=== PATIENT | female | born 1945 | race Caucasian/White ===

== ENCOUNTER 2017-03-04 23:21 | Inpatient (IN) ==
--- NOTE | 2017-03-05 02:01 | Internal Med History&Physical ---
Date of Encounter: 03/05/17 Time of Encounter: 02:01 Assessment and Plan (1) Severe sepsis Current visit: Yes Status: Acute - Fevers at [place] of 100.4, tachyardic 107, tachypnea 24. WBC count 29.9 - Lactic acid 2.8 - Likely secondary to PNA as seen on CXR vs UTI - Clinically dry, will give IVF at 75/hr. - Start Levaquin 750 IV Qday (2) Acute and chronic respiratory failure Current visit: Yes Status: Acute - Pt reportedly wear O2 at night for COPD - Acute respiratory failure secondary to suspected PNA - Tolerating 2L O2 via [place] without complaints. SpO2 mid 90s - Management as above Qualifiers: Respiratory failure complication: unspecified whether with hypoxia or hypercapnia Qualified Code(s): J96.20 - Acute and chronic respiratory failure , unspecified whether with hypoxia or hypercapnia (3) Elevated troponin Current visit: Yes Status: Acute - Likely secondary to demand ischemia from PNA - Will continue to trend. - No complaints of chest pain - Continue home BB, ASA (4) Pneumonia Current visit: Yes Status: Acute - As demonstrated on CXR in [facility]. - Management as above for severe sepsis Qualifiers: Pneumonia type: due to unspecified organism Laterality: right Lung location: lower lobe of lung Qualified Code(s): J18.1 - Lobar pneumonia, unspecified organism (5) UTI (urinary tract infection) Current visit: Yes Status: Acute - Possible UTI from UA done in [facility] ED - Moderate epithelial cells, possible contamination - No complaints of dysuria, frequency - Will await results from culture - Levaquin as above. Qualifiers: Urinary tract infection type: acute cystitis Hematuria presence: without hematuria Qualified Code(s): N30.00 - Acute cystitis without hematuria (6) COPD (chronic obstructive pulmonary disease) Current visit: Yes Status: Chronic - SOB more likely secondary to PNA. - No wheezes on auscultation - Will treat for PNA and monitor. - Supplemental O2 as needed. Qualifiers: COPD type: unspecified COPD Qualified Code(s): J44.9 - Chronic obstructive pulmonary disease, unspecified (7) Altered mental status Current visit: Yes Status: Acute - Likely secondary to severe sepsis secondary to PNA. - Management as above. Qualifiers: Altered mental status type: disorientation Qualified Code(s): R41.0 - Disorientation, unspecified (8) Alzheimer's dementia Current visit: Yes Status: Acute - Reportedly more lethargic than baseline secondary to infection - Pt can reportedly get combative at night per family. - Non aggressive at time of admission. - Will monitor Qualifiers: Alzheimer's disease onset: unspecified onset Dementia behavioral disturbance: without behavioral disturbance Qualified Code(s): G30.9 - Alzheimer's disease, unspecified; F02.80 - Dementia in other diseases classified elsewhere without behavioral disturbance; F02.80 - Dementia in other diseases classified elsewhere without behavioral disturbance; F02.80 - Dementia in other diseases classified elsewhere without behavioral disturbance (9) DVT prophylaxis Current visit: Yes Status: Acute - Heparin 5000 units q12 Internal Medicine - H&P: HPI Chief complaint: lethargy Admitted From: Emergency Dept Plans for Post Hospital Care: Home History of present illness: Ms. Cortes is a 71 year old female who presents to the emergency room by her daughters who noticed that she appeared to be more lethargic than usual. Family states that she normally is alert and talkative throughout the day however she was currently still in bed at noon this afternoon. Patient has a history of Alzheimer's dementia And is not a reliable historian. Family states that she has not been complaining of anything. At time of interview, patient is denying all symptoms including shortness of breath, cough, chest pain, fevers, chills, dysuria abdominal abdominal pain, changes in bowel movements. However, family has noticed that she has been having increased effort of breathing as well as a productive cough. Patient was transferred from [facility] she was noted to have a fever of 100.4 degrees, was tachycardic at 107, and tachypnic 24 respirations per minute. The results that [place] showed a white blood cell count 29.9, BUN of 25, creatinine 1.11, lactic acid of 2.8, troponin 0.12. Urinalysis showing questionable infection with moderate epithelial cells. Chest x-ray performed revealed right lower lobe opacity suggestive of pneumonia. EKG showed sinus rhythm without ST changes. Past Med Surg Social Fam HX - Past Medical History Medical history: arthritis, COPD, dementia, GERD, hyperlipidemia, other Psychiatric history: no psych history - Past Surgical History Surgical History: cholecystectomy - Social History Smoking Status: Former smoker Smokeless Tobacco Status: No Alcohol use: none Drug use: none Internal Medicine - H&P: Meds Albuterol Sulfate [Proair Hfa] 1 puff IH QID 03/04/17 [History] Aspirin [Lo-Dose Aspirin EC] 81 mg PO DAILY 03/04/17 [History] Montelukast [Singulair] 10 mg PO DAILY 03/04/17 [History] Pantoprazole Sodium [Protonix] 40 mg PO DAILY 03/04/17 [History] Potassium Chloride [K-Tab ER] 10 meq PO DAILY 03/04/17 [History] Rivastigmine 1 each TD QDPC 03/04/17 [History] dilTIAZem HCl [Diltiazem 24Hr Cd] 120 mg PO DAILY 03/04/17 [History] 3 Allergy/AdvReac Type Severity Reaction Status Date / Time No Known Allergies Allergy Verified 03/04/17 18:21 All Systems PM: A 10-system review of systems was performed and is negative for pertinent findings except as documented above in the HPI. Review of systems: - Constitutional: Admits to generalized fatigue, Denies fevers, chills, weight loss, - CVS: Denies chest pain, palpitations, FLYNN, orthopnea, edema, PND - Pulm: Denies SOB, cough, sputum, hematemesis, wheezing - GI: Denies abdominal pain, nausea, vomiting, diarrhea, constipation, melena - : Denies dysuria, increased frequency, urgency, hematuria, - Neuro: Denies GONZALEZ, paresthesias, focal deficits, ataxia, numbness, tingling. - Constitutional Vitals: Temp Pulse Resp BP Pulse Ox 98.2 F 90 22 103/64 94 03/05/17 00:43 03/05/17 00:43 03/05/17 00:43 03/05/17 00:43 03/05/17 00:43 Exam: Gen.: Vitals noted. No acute distress. Elderly female in no acute distress, well-nourished HEENT: PERRL, oropharynx clear, Normocephalic, atraumatic. Dry mucous membranes Cardiac: irregularly irregular rhythm, no murmur, +S1/S2 Pulmonary: CTA bilaterally, no wheezes, rales or rhonchi, equal chest expansion Abdomen: soft, tender to palpation in left upper and lower quadrants as well as suprapubic region, bowel sounds noted, no guarding Extremities: no BLE edema, nontender calf, no cyanosis or clubbing Neuro: moves all extremities, no focal deficits Psych: Appropriate mood and behavior
[2017-03-05] MEDS ORDERED: *HR* Morphine 2 MG/ML SYRINGE IVP PRN (02:30)
[2017-03-05] MEDS ORDERED: Naloxone 0.4 MG/ML INJ IVP PRN (02:30)
[2017-03-05] MEDS ORDERED: Ondansetron 4 MG/2 ML VIAL IVP PRN (02:30)
[2017-03-05] MEDS ORDERED: Acetaminophen 325 MG TABLET PO PRN (02:30)
[2017-03-05] MEDS ORDERED: *HR* HYDROcodone/Acet 5/325 mg TABLET PO PRN (02:30)
[2017-03-05 04:22] LABS: Hematocrit 41.7 % (35.3-44.9); Hemoglobin 13.8 g/dL (11.5-15.4); Mean Corpuscular HGB Conc 33.1 g/dL (31.6-35.5); Mean Corpuscular Hemoglobin 31.1 pg (28.0-33.3); Mean Corpuscular Volume 93.9 fL (83.0-100.0); Mean Platelet Volume 13.9 fL (9.4-12.4); Platelet Count 104 K/mcL (140-400); Red Blood Count 4.44 M/mcL (3.82-4.97)
[2017-03-05 04:27] LABS: INR 1.2; Prothrombin Time 13.3 Seconds (9.4-12.1)
[2017-03-05 04:29] LABS: Activated Partial Thrombo Time 26.1 Seconds (26.0-36.0)
[2017-03-05 04:36] LABS: BUN/Creatinine Ratio 25 (6-26); Blood Urea Nitrogen 18 mg/dL (7-20); Calcium 8.4 mg/dL (8.6-10.8); Carbon Dioxide 20 mEq/L (19-29); Chloride 106 mEq/L (98-109); Chol/HDL Ratio 2.4 (0-4.9); Cholesterol 139 mg/dL (< 200); Glucose 108 mg/dL (70-99); HDL Cholesterol 58 mg/dL (40-59); LDL Cholesterol,Calculated 68 mg/dL (0-99); Magnesium 1.7 mg/dL (1.6-2.6); Osmolality,Calculated 284 (280-300); Potassium 3.6 mEq/L (3.5-4.5); Sodium 136 mEq/L (136-145); Triglycerides 67 mg/dL (< 150); eGFR For African Americans > 60 (> 60); eGFR For Non-African Americans > 60 (> 60)
[2017-03-05 04:42] LABS: Lymphocytes # 0.5 K/mcL (0.6-4.6); Monocytes # 0.5 K/mcL (0.0-1.3); Neutrophils # 21.4 K/mcL (1.6-8.9); Platelet Estimate Decreased (Normal); Reactive Lymphocytes Present (Not Present)
[2017-03-05] MEDS ORDERED: Ipratropium/Albuterol Neb 3 ML IH PRN (04:46)
--- NOTE | 2017-03-05 04:48 | Event Note ---
Date of Encounter: 03/05/17 Time of Encounter: 04:47 Patient seen and examined with medical and scientific illustrator. Agree with assessment and plan
[2017-03-05] MEDS: *HR* Heparin 5,000 UNIT/ML VIAL SQ SCH ×2 (06:16→17:02)
[2017-03-05] MEDS: 0.9 % Sodium Chloride 1,000 ML IVC SCH ×2 (07:00→13:46)
--- NOTE | 2017-03-05 08:31 | Internal Med Progress Note ---
<Partha Rutherford - Last Filed: 03/05/17 10:49> Date of Encounter: 03/05/17 Time of Encounter: 08:29 - Assessment and plan (1) Sepsis Current Visit: No Status: Acute Assessment and plan: Secondary to RLL PNA as demonstrated on CXR She did present with WBC of 22 and 18% bands, tachycardia and tachypnea Started on Levaquin in the ED which we will continue Awaiting blood cultures Qualifiers: Qualified Code(s): A41.9 - Sepsis, unspecified organism (2) Community acquired pneumonia Current Visit: Yes Status: Acute Assessment and plan: Management as above with Levaquin Support with breathing treatments and currently on home dose oxygen Qualifiers: Laterality: right Lung location: lower lobe of lung Qualified Code(s): J18.1 - Lobar pneumonia, unspecified organism (3) Elevated troponin Current Visit: Yes Status: Acute Assessment and plan: Adynamic trop of 0.12, .13, and .10 likely due to demand ischemia Cardiology consulted, appreciate recommendations No current chest pain or anginal equivalents (4) COPD (chronic obstructive pulmonary disease) Current Visit: Yes Status: Chronic Assessment and plan: Not currently in exacerbation Will continue home Oxygen, Symbicort and Albuterol No indication for steroids for now Qualifiers: COPD type: unspecified COPD Qualified Code(s): J44.9 - Chronic obstructive pulmonary disease, unspecified (5) Alzheimer's dementia Current Visit: Yes Status: Chronic Assessment and plan: Family at bedside states that her mental status currently is at baseline She does take Rivastigmine patch at home which is on hold for now Qualifiers: Alzheimer's disease onset: unspecified onset Dementia behavioral disturbance: without behavioral disturbance Qualified Code(s): G30.9 - Alzheimer's disease, unspecified; F02.80 - Dementia in other diseases classified elsewhere without behavioral disturbance; F02.80 - Dementia in other diseases classified elsewhere without behavioral disturbance; F02.80 - Dementia in other diseases classified elsewhere without behavioral disturbance (6) DVT prophylaxis Current Visit: Yes Status: Acute Assessment and plan: Heparin 5000 units BID - Subjective Interval history: Pt seen and examined. She does have history of Alzheimer's dementia but her daughters including the one whom she lives with are at bedside and state that her mental status is at baseline. She has no complaints this morning and states her breathing is fine. Patient is on 2 L oxygen as needed at home but is usually non-compliant given her mental status. Family states she does not have recent hospitalizations and never had issues with aspiration, but did have pneumonia roughly 2 years ago. - Constitutional Vitals: Temp Pulse Resp BP Pulse Ox 99.4 F 93 24 105/51 93 03/05/17 04:19 03/05/17 07:54 03/05/17 07:54 03/05/17 07:54 03/05/17 07:54 General appearance: Present: A&O X 1 (only to self), pleasant, no acute distress , answers questions appropriately - Head Head exam: Present: atraumatic, normocephalic - Eye Eye exam: Present: PERRL, conjuntiva pink, sclera anicteric - Neck Neck exam general surgery: Present: supple, trachea midline. Absent: lymphadenopathy - Respiratory Respiratory exam: Present: CTAB. Absent: accessory muscle use, rales, rhonchi, wheezes - Cardiovascular Cardiovascular exam: Present: irregular rhythm (frequent PVCs), RRR, +S1, +S2. Absent: diastolic murmur, gallop, rubs, systolic murmur - GI/Abdominal GI/Abdominal exam: Present: normal bowel sounds, soft, no peritoneal signs. Absent: distended, tenderness - Extremities Exam Extremities exam: Present: warm, radial pulses palpable and symmetrical. Absent : calf tenderness, cyanotic, pedal edema - Neurological Exam Neurological exam: Present: alert, no focal deficits. Absent: oriented X3, pronater drift, facial droop, speech deficit - Skin Skin exam: Present: dry, intact Internal Medicine: Result - Labs CBC & Chem 7: 03/05/17 03:45 03/05/17 03:45 Labs: Short CBC 03/05/17 Range/Units 03:45 WBC 22.8 H (4.3-11.1) K/mcL Hgb 13.8 (11.5-15.4) g/dL Hct 41.7 (35.3-44.9) % Plt Count 104 L (140-400) K/mcL Neutrophils # 21.4 H (1.6-8.9) K/mcL BMP 03/05/17 03:45 Sodium 136 Potassium 3.6 Chloride 106 Carbon Dioxide 20 BUN 18 Creatinine 0.72 Glucose 108 H Calcium 8.4 L Cardiac Enzymes 03/05/17 Range/Units 03:45 Troponin I 0.13 H* (0-0.03) ng/mL - ABG Interpretation ABG results: PT/INR, D-dimer PT 13.3 Seconds (9.4-12.1) H 03/05/17 03:45 Consult Discharge Plan - Plan Referrals: Bonita Nguyen, WASTEWATER TREATMENT OPERATOR [Primary Care Provider] - (office is closed due to ) <Abdulaziz Lee - Last Filed: 03/05/17 18:14> Date of Encounter: 03/05/17 - Constitutional Vitals: Temp Pulse Resp BP Pulse Ox 97.9 F 90 20 89/54 92 03/05/17 15:37 03/05/17 17:06 03/05/17 17:06 03/05/17 17:06 03/05/17 17:06 Internal Medicine: Result - Labs CBC & Chem 7: 03/05/17 03:45 03/05/17 03:45 Labs: Short CBC 03/05/17 Range/Units 03:45 WBC 22.8 H (4.3-11.1) K/mcL Hgb 13.8 (11.5-15.4) g/dL Hct 41.7 (35.3-44.9) % Plt Count 104 L (140-400) K/mcL Neutrophils # 21.4 H (1.6-8.9) K/mcL BMP 03/05/17 03:45 Sodium 136 Potassium 3.6 Chloride 106 Carbon Dioxide 20 BUN 18 Creatinine 0.72 Glucose 108 H Calcium 8.4 L Cardiac Enzymes 03/05/17 03/05/17 03/05/17 Range/Units 03:45 09:36 14:48 Troponin I 0.13 H* 0.10 H* 0.05 H* (0-0.03) ng/mL - ABG Interpretation ABG results: PT/INR, D-dimer PT 13.3 Seconds (9.4-12.1) H 03/05/17 03:45 - Attending Attestation I conducted a face to face diagnostic evaluation of this patient and my medical decision-making was reviewed with the Resident Physician, Dr Partha Rutherford. I agree with the documented findings, disposition and treatment plan as described except to the extent set forth below: Patient with advanced dementia cannot provide history. Here for treatment of sepsis and pneumonia. Blood pressure is low. We will give 1 L bolus and obtain lactic acid level. Zosyn for gram-negative humza coverage. We will monitor closely throughout the night. I discussed CODE STATUS with patient's family. The patient is full code. All medical problems apparently to me today.
[2017-03-05] MEDS: Aspirin 325 MG TABLET PO SCH (09:45)
[2017-03-05] MEDS: Levofloxacin 750 MG/150 ML 750 MG/150 ML BAG IVPB SCH (09:46)
--- NOTE | 2017-03-05 10:08 | Cardiology Consult Note ---
Date of Encounter: 03/05/17 Time of Encounter: 10:01 Assessment and Plan (1) Elevated troponin Current Visit: Yes Status: Acute Most likely due to demand ischemia from acute respiratory failure. trop 0.12, 0.13, 0.10. WBC 22.8, CXR form [place] reported Focal airspace opacity in the right lung base suspicious for pneumonia. EKG does not show ischemic change. - Continue telemetry (2) Abdominal aortic aneurysm Current Visit: Yes Status: Acute Self reported high risk abdominal aortic aneurysm, was recommended to have repaired but poor candidate due to patient health. - continue ASA - atorvastatin statin 40 mg started Qualifiers: Qualified Code(s): I71.4 - Abdominal aortic aneurysm, without rupture (3) Severe sepsis Current Visit: Yes Status: Acute per management of medicine team Discussion w patient/family: The assessment and plan as outlined above was discussed with the patient and/or family members who expressed understanding and agreement. All questions were answered. Thank you for involving us in the care of your patient. Please call with any questions. History of Present Illness Consult date: 03/05/17 Requesting physician: Moiz Downs Consult reason: elevated trops Chief complaint: breathing problems and urinary problem History of present illness: Ms. Cortes is a 71 year old female with a history of dementia, COPD and HLD she currently is hospitalized for severe sepsis source PNA/UTI. Cardio is consulted for elevated trops 0.12, 0.13. Patient was seen with her two daughters who provided history. Patient had shortness of breath that started yesterday. She currently is not having symptoms, and states that she's doing well. Patient denies chest pain, diaphoresis, Orthopnea, and PND. Patient and daughters were unsure of why patient is currently on Diltiazem 120, but that she 's been on it for at least since 2008. 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 She was suppose to have a surgical repair at some point this year, but due to her health status she determined to be a poor candidate. Patient and family denies any previous cardiac history. Past Med Surg Social Fam HX - Past Medical History Medical history: arthritis, COPD, dementia, GERD, hyperlipidemia, other Psychiatric history: no psych history - Past Surgical History Surgical History: cholecystectomy - Social History Smoking Status: Former smoker Smokeless Tobacco Status: No Alcohol use: none Drug use: none Medications and Allergies Albuterol Sulfate [Proair Hfa] 1 puff IH QID 03/04/17 [History] Aspirin [Lo-Dose Aspirin EC] 81 mg PO DAILY 03/04/17 [History] Montelukast [Singulair] 10 mg PO DAILY 03/04/17 [History] Pantoprazole Sodium [Protonix] 40 mg PO DAILY 03/04/17 [History] Potassium Chloride [K-Tab ER] 10 meq PO DAILY 03/04/17 [History] Rivastigmine 1 each TD QDPC 03/04/17 [History] dilTIAZem HCl [Diltiazem 24Hr Cd] 120 mg PO DAILY 03/04/17 [History] Budesonide/Formoterol 160/4.5 [Symbicort 160/4.5] 2 puff IH BID 03/05/17 [ History] Tiotropium [Spiriva] 1 puff IH DAILY 03/05/17 [History] 3 Allergy/AdvReac Type Severity Reaction Status Date / Time No Known Allergies Allergy Verified 03/04/17 18:21 All Systems Review: A 10-system review of systems was performed and is negative for pertinent findings except as documented above in the HPI. - Constitutional Constitutional: anorexia (patient has been losing weight over the last couple of months), fatigue, weakness, weight loss, no chills, no fever(s), no weight gain - EENT Eyes: no blurred vision, no loss of vision - Cardiovascular Cardiovascular: as per HPI - Respiratory Respiratory: no cough, no dyspnea, no hemoptysis, no wheezing - Gastrointestinal Gastrointestinal: no abdominal pain - Integumentary Integumentary: no erythema, no rash, no unusual bruising - Neurological Neurological: memory loss, no abnormal speech, no dizziness, no focal weakness, no loss of vision, no numbness, no syncope, no tingling - Psychiatric Psychiatric: no anxiety, no depression, no hallucinations, no panic attacks Physical Examination Vital Signs, Last 4 Hours Pulse Resp BP Pulse Ox 03/05/17 07:54 93 24 105/51 93 General: Conversant, No Apparent Distress HEENT: Atraumatic, Normocephaly, Mucus Membranes Moist Neck: No JVD, Normal carotid pulses Cardiac: Normal S1 and S2, No Murmur, Other (irregular rate) Lungs: Normal Breath Sounds, No Wheeze, Rales, Rhonchi Neuro: Alert and responsive, No focal deficits noted Abdomen: Soft, Non-Tender Skin: No rashes noted on visualized skin Musculoskeletal: No Chest Wall Tenderness Extremities: No Clubbing, No Cyanosis, No Edema, Normal Pulses Results 03/05/17 03:45 03/05/17 03:45 Lab Results 03/05/17 03/05/17 03/05/17 03:45 03:45 03:45 WBC 22.8 H Hgb 13.8 Hct 41.7 Plt Count 104 L INR 1.2 APTT 26.1 Sodium Potassium Chloride Carbon Dioxide BUN Creatinine Glucose Calcium Magnesium Troponin I 0.13 H* 03/05/17 03:45 WBC Hgb Hct Plt Count INR APTT Sodium 136 Potassium 3.6 Chloride 106 Carbon Dioxide 20 BUN 18 Creatinine 0.72 Glucose 108 H Calcium 8.4 L Magnesium 1.7 Troponin I Consult Discharge Plan - Plan Referrals: Bonita Nguyen SKIVER MACHINE OPERATOR [Primary Care Provider] - (office is closed due to )
[2017-03-05] MEDS: Budesonide/Formoterol 160/4.5 MDI IH SCH ×2 (10:33→21:29)
[2017-03-05] MEDS ORDERED: 0.9 % Sodium Chloride 500 ML IVC ONE ×2 (14:48→19:26)
[2017-03-05] MEDS ORDERED: 0.9 % Sodium Chloride 1,000 ML IVC ONE (18:04)
[2017-03-05] MEDS: Piperacillin/Tazobactam 3.375 GM in D5% in Water 50 ML IVPB SCH (19:18)
[2017-03-05] MEDS ORDERED: Vancomycin 750 MG in D5% in Water 250 ML IVPB SCH (20:00)
[2017-03-05] MEDS ORDERED: Vancomycin 1,000 MG in D5% in Water 250 ML IVPB ONE (20:18)
[2017-03-05] MEDS ORDERED: *HR* LORazepam 0.5 MG TABLET PO ONE (22:15)
[2017-03-05] MEDS ORDERED: *HR* Digoxin 0.5 MG/2 ML AMPUL IVP ONE ×2 (22:18→23:39)
[2017-03-05] MEDS ORDERED: *HR* Digoxin 0.5 MG/2 ML AMPUL ONE (22:52)
[2017-03-06] MEDS: Piperacillin/Tazobactam 3.375 GM in D5% in Water 50 ML IVPB SCH ×3 (03:12→17:23)
[2017-03-06 04:04] LABS: Basophils % 0.2 %; Eosinophils % 0.1 %
[2017-03-06 04:06] LABS: Hematocrit 39.3 % (35.3-44.9); Hemoglobin 12.6 g/dL (11.5-15.4); Immature Granulocytes % 1.9 % (0-4); Immature Platelets 15.9 % (1.1-6.1); Lymphocytes # 0.8 K/mcL (0.6-4.6); Lymphocytes % 4.8 %; Mean Corpuscular HGB Conc 32.1 g/dL (31.6-35.5); Mean Corpuscular Hemoglobin 30.8 pg (28.0-33.3); Mean Corpuscular Volume 96.1 fL (83.0-100.0); Mean Platelet Volume 12.8 fL (9.4-12.4); Monocytes # 0.8 K/mcL (0.0-1.3); Monocytes % 4.7 %; Platelet Count 106 K/mcL (140-400); Red Blood Count 4.09 M/mcL (3.82-4.97); Red Cell Distribution Width 13.8 % (11.5-14.5); Segmented Neutrophils % 88.3 %
[2017-03-06 04:20] LABS: BUN/Creatinine Ratio 16 (6-26); Blood Urea Nitrogen 10 mg/dL (7-20); Calcium 8.3 mg/dL (8.6-10.8); Carbon Dioxide 19 mEq/L (19-29); Chloride 111 mEq/L (98-109); Glucose 102 mg/dL (70-99); Osmolality,Calculated 285 (280-300); Potassium 3.3 mEq/L (3.5-4.5); Sodium 138 mEq/L (136-145); eGFR For African Americans > 60 (> 60); eGFR For Non-African Americans > 60 (> 60)
[2017-03-06] MEDS: *HR* Heparin 5,000 UNIT/ML VIAL SQ SCH ×2 (05:57→17:24)
[2017-03-06] MEDS: Aspirin 325 MG TABLET PO SCH (08:41)
--- NOTE | 2017-03-06 09:47 | Internal Med Progress Note ---
<Partha Rutherford - Last Filed: 03/06/17 11:36> Date of Encounter: 03/06/17 Time of Encounter: 09:45 - Assessment and plan (1) Severe sepsis Current Visit: Yes Status: Acute Assessment and plan: Secondary to RLL PNA as demonstrated on CXR Her white count has decreased to 15.9 from 22.8 and she has remained afebrile Coverage was broadened yesterday due to hypotension; Zosyn and Vanc were added to Levaquin Blood cultures collected yesterday remain negative Continue with gentle fluid hydration with NS @ 75 ml/hr (2) Atrial fibrillation with RVR Current Visit: Yes Status: Acute Assessment and plan: Patient did go into AFib RVR last night with rates in the 160s on EKG Due to borderline hypotension, she was given IV Digoxin Cardiology has been re-consulted, appreciate recommendations CHADSVASC = 2 (age, female) but she is not ideal candidate for correction anticoagulation given her dementia and fall risk Echo pending (3) Community acquired pneumonia Current Visit: Yes Status: Acute Assessment and plan: Management as above with broad spectrum antibiotics Support with breathing treatments and currently on home dose oxygen Qualifiers: Laterality: right Lung location: lower lobe of lung Qualified Code(s): J18.1 - Lobar pneumonia, unspecified organism (4) Elevated troponin Current Visit: Yes Status: Acute Assessment and plan: Adynamic trop of .13, .10, .05 likely due to demand ischemia in setting of sepsis Cardiology consulted, appreciate recommendations No current chest pain or anginal equivalents (5) COPD (chronic obstructive pulmonary disease) Current Visit: Yes Status: Chronic Assessment and plan: Not currently in exacerbation Will continue home Oxygen, Symbicort and Albuterol No indication for steroids for now Qualifiers: COPD type: unspecified COPD Qualified Code(s): J44.9 - Chronic obstructive pulmonary disease, unspecified (6) Alzheimer's dementia Current Visit: Yes Status: Chronic Assessment and plan: Family at bedside states that her mental status currently is at baseline She does take Rivastigmine patch at home which is on hold for now Qualifiers: Alzheimer's disease onset: unspecified onset Dementia behavioral disturbance: without behavioral disturbance Qualified Code(s): G30.9 - Alzheimer's disease, unspecified; F02.80 - Dementia in other diseases classified elsewhere without behavioral disturbance; F02.80 - Dementia in other diseases classified elsewhere without behavioral disturbance; F02.80 - Dementia in other diseases classified elsewhere without behavioral disturbance (7) DVT prophylaxis Current Visit: Yes Status: Acute Assessment and plan: Heparin 5000 units BID - Subjective Interval history: Pt seen and examined. She does have history of Alzheimer's dementia but she has many family members at bedside. They report that she did have rapid heart rate overnight but patient otherwise has no symptoms or complaints this morning. She denies any pain, shortness of breath, nausea, vomiting and is anxious to go home. - Constitutional Vitals: Temp Pulse Resp BP Pulse Ox 98.8 F 101 24 94/48 97 03/06/17 07:18 03/06/17 07:18 03/06/17 07:18 03/06/17 07:18 03/06/17 07:18 General appearance: Present: A&O X 1 (only to self), pleasant, no acute distress , answers questions appropriately - Head Head exam: Present: atraumatic, normocephalic - Eye Eye exam: Present: PERRL, conjuntiva pink, sclera anicteric - Neck Neck exam general surgery: Present: supple, trachea midline. Absent: lymphadenopathy - Respiratory Respiratory exam: Present: CTAB. Absent: accessory muscle use, rales, rhonchi, wheezes - Cardiovascular Cardiovascular exam: Present: irregular rhythm, +S1, +S2, tachycardia. Absent: diastolic murmur, gallop, rubs, systolic murmur - GI/Abdominal GI/Abdominal exam: Present: normal bowel sounds, soft, no peritoneal signs. Absent: distended, tenderness - Extremities Exam Extremities exam: Present: warm, radial pulses palpable and symmetrical. Absent : calf tenderness, cyanotic, pedal edema - Neurological Exam Neurological exam: Present: alert, oriented X3, no focal deficits. Absent: pronater drift, facial droop, speech deficit - Skin Skin exam: Present: dry, intact Internal Medicine: Result - Labs CBC & Chem 7: 03/06/17 03:36 03/06/17 03:36 Labs: Short CBC 03/06/17 Range/Units 03:36 WBC 15.9 H (4.3-11.1) K/mcL Hgb 12.6 (11.5-15.4) g/dL Hct 39.3 (35.3-44.9) % Plt Count 106 L (140-400) K/mcL Neutrophils # 14.0 H (1.6-8.9) K/mcL [facility] 03/06/17 03:36 Sodium 138 Potassium 3.3 L Chloride 111 H Carbon Dioxide 19 BUN 10 Creatinine 0.61 Glucose 102 H Calcium 8.3 L Cardiac Enzymes 03/05/17 03/05/17 Range/Units 09:36 14:48 Troponin I 0.10 H* 0.05 H* (0-0.03) ng/mL - ABG Interpretation ABG results: PT/INR, D-dimer PT 13.3 Seconds (9.4-12.1) H 03/05/17 03:45 Consult Discharge Plan - Plan Referrals: Bonita Nguyen, GASOLINE ATTENDANT [Primary Care Provider] - (office is closed due to ) <Abdulaziz Lee - Last Filed: 03/06/17 17:01> Date of Encounter: 03/06/17 - Constitutional Vitals: Temp Pulse Resp BP Pulse Ox 98.0 F 85 20 94/57 96 03/06/17 16:00 03/06/17 16:00 03/06/17 16:00 03/06/17 16:00 03/06/17 16:00 Internal Medicine: Result - Labs CBC & Chem 7: 03/06/17 03:36 03/06/17 03:36 Labs: Short CBC 03/06/17 Range/Units 03:36 WBC 15.9 H (4.3-11.1) K/mcL Hgb 12.6 (11.5-15.4) g/dL Hct 39.3 (35.3-44.9) % Plt Count 106 L (140-400) K/mcL Neutrophils # 14.0 H (1.6-8.9) K/mcL [facility] 03/06/17 03:36 Sodium 138 Potassium 3.3 L Chloride 111 H Carbon Dioxide 19 BUN 10 Creatinine 0.61 Glucose 102 H Calcium 8.3 L - ABG Interpretation ABG results: PT/INR, D-dimer PT 13.3 Seconds (9.4-12.1) H 03/05/17 03:45 - Impressions Impressions Echocardiogram 03/05/17 13:57 Impressions: LVEF 55%. Normal LV chamber size, wall thickness and function. Trace mitral regurgitation. Normal mitral valve structure and function, mild annular calcification, trace MR Mild-moderate tricuspid regurgitation. Left Ventricular Wall Motion: Rest Echo Findings All wall segments showed normal motion. Findings: Study Quality * Technically adequate exam. ECG Findings * Normal sinus rhythm. Left Ventricle * LVEF 55%. * Normal LV chamber size, wall thickness and function. Right Ventricle * Normal right ventricular structure and function. Left Atrium * Normal left atrial size. Right Atrium * Normal right atrial size. Aortic Valve * trileaflet, opens well, mild annular calcification Mitral Valve * Normal mitral valve structure and function, mild annular calcification, trace MR mild annular calcificatoin * Trace mitral regurgitation. Tricuspid Valve * Mild-moderate tricuspid regurgitation. * No tricuspid stenosi. * No pulmonary hypertension. Pulmonic Valve * Normal pulmonic valve structure and function. Aorta * Normally sized aortic root. - Attending Attestation I conducted a face to face diagnostic evaluation of this patient and my medical decision-making was reviewed with the Resident Physician, Dr Partha Rutherford. I agree with the documented findings, disposition and treatment plan as described except to the extent set forth below: I discussed the case with cardiology recommends holding off any antiarrhythmic while the patient is in sinus and considering restarting digoxin only. The patient goes into A. fib with rapid ventricular response. She is at high risk for morbidity mortality and complications due to severe sepsis requiring treatment with IV vancomycin which needs blood level monitoring for toxicity.
[2017-03-06] MEDS: Budesonide/Formoterol 160/4.5 MDI IH SCH ×2 (10:14→20:53)
--- NOTE | 2017-03-06 11:55 | Event Note ---
Date of Encounter: 03/06/17 Time of Encounter: 12:00 - Cardiology Event Note ECHO: Impressions: LVEF 55%. Normal LV chamber size, wall thickness and function. Trace mitral regurgitation. Normal mitral valve structure and function, mild annular calcification, trace MR Mild-moderate tricuspid regurgitation. Left Ventricular Wall Motion: Rest Echo Findings All wall segments showed normal motion. Patient already signed off by Cardiology. No further recs. Re-consult PRN.
[2017-03-06] MEDS ORDERED: 0.9 % Sodium Chloride 500 ML IVC ONE (13:40)
--- NOTE | 2017-03-06 14:14 | Cardiology Progress Note ---
Date of Encounter: 03/06/17 Time of Encounter: 14:15 Assessment and Plan (1) Atrial fibrillation with RVR Current Visit: Yes Status: Acute Per Cardiology: ECG showed afib RVR 150's -160's. Suspect sepsis driving factor. Unknown if past history of atrial fibrillation-- apparently had been on Cardizem the past. Patient status post IV digoxin 3 doses with almost full load (Low SBP). Kidney function stable. Currently sinus rhythm in the 80s with PACs. Discussed with Dr. Lugo, since almost received full digoxin load (0.5mg, 0.25, and 0.125mg), will go ahead and start Digoxin 0.125mg PO daily. SBP in the 100's. Monitor tele. Will s/o, re-consult PRN. F/u scheduled. Echo showed EF 55%, NSWMA. Not deemed a good candidate for ferry terminal agent AC d/t comorbids and dementia. (2) Elevated troponin Current Visit: Yes Status: Acute Per Cardiology: Most likely due to demand ischemia from acute respiratory failure-- trop 0.12, 0.13, 0.10. WBC 22.8, CXR form [facility] reported Focal airspace opacity in the right lung base suspicious for pneumonia. EKG does not show ischemic change. Echo ok. CP free. Family agreeable to medical management. On asa, statin. No BB d/t hypotension. Discussion w patient/family: The assessment and plan as outlined above was discussed with the patient and/or family members who expressed understanding and agreement. All questions were answered. Thank you for involving us in the care of your patient. Please call with any questions. Subjective Principal diagnosis: Afib RVR Interval history: Patient seen today with multiple family members at bedside. Patient alert to person. When asked location she said "here". Patient thought she was at home. Unaware of year. Daughter reports history of dementia. She appears to deny any chest pain, shortness of breath, any palpitations. Objective Vital Signs, Last 4 Hours Temp Pulse Resp BP Pulse Ox 03/06/17 12:03 98.2 F 123 22 100/52 92 03/06/17 10:15 18 97 General: Conversant Cardiac: Reg Rate and Rhythm, Normal S1 and S2, No Murmur Lungs: Other (diminished throughout) Neuro: Alert and responsive Skin: No rashes noted on visualized skin Extremities: No Edema Results 03/06/17 03:36 03/06/17 03:36 Lab Results Laboratory Tests 03/05/17 03/05/17 03/05/17 03:45 03:45 03:45 WBC 22.8 H Plt Count INR 1.2 Potassium Magnesium Troponin I 0.13 H* 03/05/17 03/05/17 03/05/17 03:45 09:36 14:48 WBC Plt Count INR Potassium Magnesium 1.7 Troponin I 0.10 H* 0.05 H* 03/06/17 03/06/17 03:36 03:36 WBC 15.9 H Plt Count 106 L INR Potassium 3.3 L Magnesium Troponin I ITS Impressions Echocardiogram 03/05/17 13:57 Impressions: LVEF 55%. Normal LV chamber size, wall thickness and function. Trace mitral regurgitation. Normal mitral valve structure and function, mild annular calcification, trace MR Mild-moderate tricuspid regurgitation. Left Ventricular Wall Motion: Rest Echo Findings All wall segments showed normal motion. Findings: Study Quality * Technically adequate exam. ECG Findings * Normal sinus rhythm. Left Ventricle * LVEF 55%. * Normal LV chamber size, wall thickness and function. Right Ventricle * Normal right ventricular structure and function. Left Atrium * Normal left atrial size. Right Atrium * Normal right atrial size. Aortic Valve * trileaflet, opens well, mild annular calcification Mitral Valve * Normal mitral valve structure and function, mild annular calcification, trace MR mild annular calcificatoin * Trace mitral regurgitation. Tricuspid Valve * Mild-moderate tricuspid regurgitation. * No tricuspid stenosi. * No pulmonary hypertension. Pulmonic Valve * Normal pulmonic valve structure and function. Aorta * Normally sized aortic root. Active Medications Acetaminophen (Tylenol) 650 mg PO Q6HR PRN PRN Reason: pain/fever Stop: 09/04/17 02:31 Hydrocodone Bitart/Acetaminophen ([place]ard 5-325 Mg) 1 tab PO Q4HR PRN PRN Reason: Moderate Pain (4-6) Stop: 09/04/17 02:31 Albuterol/Ipratropium (Duoneb) 3 ml IH [id number] PRN PRN Reason: Shortness Of Breath/Wheezing Stop: 09/04/17 04:47 Aspirin (Aspirin) 325 mg PO DAILY [facility] Stop: 09/04/17 09:01 Last Admin: 03/06/17 08:41 Dose: 325 mg Atorvastatin Calcium (Lipitor) 40 mg PO HS [facility] Stop: 09/04/17 21:01 Last Admin: 03/05/17 21:08 Dose: 40 mg Budesonide/Formoterol Fumarate (Symbicort) 2 puff IH BIDR KIMBER PRN Reason: Protocol Stop: 09/04/17 10:01 Last Admin: 03/06/17 10:14 Dose: 2 puff Docusate Sodium (Colace) 100 mg PO BID PRN PRN Reason: Constipation Stop: 09/04/17 02:31 Heparin Sodium (Porcine) (Heparin) 5,000 unit SQ Q12HCO [facility] Stop: 09/04/17 06:01 Last Admin: 03/06/17 05:57 Dose: 5,000 unit Levofloxacin/Dextrose (Levaquin Premix 750mg/150 Ml) 750 mg in 150 mls @ 100 mls/hr IVPB Q48H [facility] PRN Reason: Protocol Stop: 09/04/17 09:01 Last Infusion: 03/05/17 11:18 Dose: Infused Sodium Chloride (0.9 % Sodium Chloride) 1,000 mls @ 75 mls/hr IVC .[id number] [facility] Stop: 09/04/17 02:46 Last Admin: 03/05/17 13:46 Dose: 75 mls/hr Piperacillin Sod/Tazobactam (Sod 3.375 gm/ Dextrose) 50 mls @ 12.5 mls/hr IVPB Q8H [facility] Stop: 09/04/17 18:31 Last Admin: 03/06/17 09:15 Dose: 12.5 mls/hr Vancomycin HCl 750 mg/ (Dextrose) 250 mls @ 250 mls/hr IVPB Q24H [facility] Stop: 09/05/17 20:01 Naloxone HCl (Narcan) 0.4 mg IVP Q2MIN PRN PRN Reason: Opioid Reversal Stop: 09/04/17 02:31 Ondansetron HCl (Zofran) 4 mg IVP Q8HR PRN PRN Reason: Nausea And Vomiting Stop: 09/04/17 02:31 Last Admin: 03/06/17 13:10 Dose: 4 mg - Imaging and Cardiology Echo: report reviewed - EKG Interpretation EKG results cardiology: personally reviewed (ECG showed A. fib in the 150s), other (Telemetry reviewed and current sinus rhythm in the 80s with PACs, average heart rate the past 12 hours 108) Consult Discharge Plan - Plan Referrals: Bonita Nguyen, EMMANUEL [Primary Care Provider] - (office is closed due to )
[2017-03-06] MEDS: 0.9 % Sodium Chloride 1,000 ML IVC SCH (14:41)
[2017-03-06] MEDS: *HR* Digoxin 0.125 MG TABLET PO SCH (15:09)
[2017-03-06] MEDS ORDERED: Vancomycin 750 MG in D5% in Water 250 ML IVPB SCH (20:00)
[2017-03-07] MEDS: Piperacillin/Tazobactam 3.375 GM in D5% in Water 50 ML IVPB SCH ×3 (02:39→18:17)
[2017-03-07] MEDS: *HR* Heparin 5,000 UNIT/ML VIAL SQ SCH ×2 (04:57→18:18)
[2017-03-07 05:16] LABS: Basophils % 0.4 %; Eosinophils # 0.1 K/mcL (0.0-0.6); Eosinophils % 1.4 %; Hematocrit 36.3 % (35.3-44.9); Hemoglobin 11.7 g/dL (11.5-15.4); Immature Granulocytes % 0.6 % (0-4); Lymphocytes # 0.7 K/mcL (0.6-4.6); Mean Corpuscular HGB Conc 32.2 g/dL (31.6-35.5); Mean Corpuscular Hemoglobin 30.2 pg (28.0-33.3); Mean Corpuscular Volume 93.8 fL (83.0-100.0); Mean Platelet Volume 12.3 fL (9.4-12.4); Monocytes # 0.6 K/mcL (0.0-1.3); Monocytes % 6.8 %; Neutrophils # 6.7 K/mcL (1.6-8.9); Platelet Count 132 K/mcL (140-400); Red Blood Count 3.87 M/mcL (3.82-4.97); Red Cell Distribution Width 13.8 % (11.5-14.5); Segmented Neutrophils % 81.8 %
[2017-03-07 05:29] LABS: BUN/Creatinine Ratio 14 (6-26); Blood Urea Nitrogen 8 mg/dL (7-20); Calcium 8.3 mg/dL (8.6-10.8); Carbon Dioxide 25 mEq/L (19-29); Chloride 109 mEq/L (98-109); Glucose 90 mg/dL (70-99); Osmolality,Calculated 284 (280-300); Potassium 3.5 mEq/L (3.5-4.5); Sodium 138 mEq/L (136-145); eGFR For African Americans > 60 (> 60); eGFR For Non-African Americans > 60 (> 60)
[2017-03-07] MEDS ORDERED: Aminoglycoside Consult 1 EACH MC ONE (07:33)
--- NOTE | 2017-03-07 07:50 | Event Note ---
Date of Encounter: 03/07/17 Time of Encounter: 06:30 - Cardiology Event Note Currently sinus rhythm in the 90s with PACs. Average heart rate past 12 hours 103, brief episodes of A. fib with RVR yesterday evening, no further recurrence this morning. Continue with digoxin. No further recommendations. Reconsult if needed.
[2017-03-07] MEDS: 0.9 % Sodium Chloride 1,000 ML IVC SCH ×2 (08:11→20:14)
[2017-03-07] MEDS: Levofloxacin 750 MG/150 ML 750 MG/150 ML BAG IVPB SCH (08:12)
[2017-03-07] MEDS: Aspirin 325 MG TABLET PO SCH (08:13)
[2017-03-07] MEDS: *HR* Digoxin 0.125 MG TABLET PO SCH (08:13)
--- NOTE | 2017-03-07 10:25 | Internal Med Progress Note ---
<KrishPartha - Last Filed: 03/07/17 11:17> Date of Encounter: 03/07/17 Time of Encounter: 10:23 - Assessment and plan (1) Severe sepsis Current Visit: Yes Status: Acute Assessment and plan: Secondary to RLL PNA as demonstrated on CXR Her white count has decreased to 8.1 from 15.9 and she has remained afebrile Blood cultures remain negative > 48 hrs and Vanc has been stopped; continue Levaquin and Zosyn Continue with gentle fluid hydration with NS @ 75 ml/hr due to her poor intake and has borderline hypotension (2) Atrial fibrillation with RVR Current Visit: Yes Status: Acute Assessment and plan: Patient did go into AFib RVR on 03/05 with rates in the 160s on EKG Due to borderline hypotension, she was given IV Digoxin Cardiology recommended starting her on PO Digoxin CHADSVASC = 2 (age, female) but she is not ideal candidate for [facility]cf anticoagulation given her dementia and fall risk Echo was unremarkable (3) Community acquired pneumonia Current Visit: Yes Status: Acute Assessment and plan: Management as above with broad spectrum antibiotics Support with breathing treatments and currently on home dose oxygen Qualifiers: Laterality: right Lung location: lower lobe of lung Qualified Code(s): J18.1 - Lobar pneumonia, unspecified organism (4) Elevated troponin Current Visit: Yes Status: Acute Assessment and plan: Adynamic trop of .13, .10, .05 likely due to demand ischemia in setting of sepsis Cardiology consulted and did not believe she needed any intervention No current chest pain or anginal equivalents (5) COPD (chronic obstructive pulmonary disease) Current Visit: Yes Status: Chronic Assessment and plan: Not currently in exacerbation Will continue home Oxygen, Symbicort and Albuterol No indication for steroids for now Qualifiers: COPD type: unspecified COPD Qualified Code(s): J44.9 - Chronic obstructive pulmonary disease, unspecified (6) Alzheimer's dementia Current Visit: Yes Status: Chronic Assessment and plan: Family at bedside states that her mental status currently is at baseline She does take Rivastigmine patch at home which is on hold for now Qualifiers: Alzheimer's disease onset: unspecified onset Dementia behavioral disturbance: without behavioral disturbance Qualified Code(s): G30.9 - Alzheimer's disease, unspecified; F02.80 - Dementia in other diseases classified elsewhere without behavioral disturbance; F02.80 - Dementia in other diseases classified elsewhere without behavioral disturbance; F02.80 - Dementia in other diseases classified elsewhere without behavioral disturbance (7) DVT prophylaxis Current Visit: Yes Status: Acute Assessment and plan: Heparin 5000 units BID - Subjective Interval history: Pt seen and examined. Daughter is at bedside and stayed overnight with the patient states there were no overnight events. Patient is comfortable laying in bed this morning and has no complaints of SOB, chest pain, nausea, vomiting, diarrhea. Daughter states pt has not much of an appetite this morning. - Constitutional Vitals: Temp Pulse Resp BP Pulse Ox 99.0 F 100 20 95/49 94 03/07/17 07:20 03/07/17 08:21 03/07/17 07:20 03/07/17 07:20 03/07/17 07:20 General appearance: Present: A&O X 1 (only to self), pleasant, no acute distress , answers questions appropriately - Head Head exam: Present: atraumatic, normocephalic - Eye Eye exam: Present: PERRL, conjuntiva pink, sclera anicteric - Neck Neck exam general surgery: Present: supple, trachea midline. Absent: lymphadenopathy - Respiratory Respiratory exam: Present: CTAB. Absent: accessory muscle use, rales, rhonchi, wheezes - Cardiovascular Cardiovascular exam: Present: irregular rhythm, +S1, +S2. Absent: diastolic murmur, gallop, rubs, systolic murmur - GI/Abdominal GI/Abdominal exam: Present: normal bowel sounds, soft, no peritoneal signs. Absent: distended, tenderness - Extremities Exam Extremities exam: Present: warm, radial pulses palpable and symmetrical. Absent : calf tenderness, cyanotic, pedal edema - Neurological Exam Neurological exam: Present: alert, no focal deficits. Absent: oriented X3, pronater drift, facial droop, speech deficit - Skin Skin exam: Present: dry, intact Internal Medicine: Result - Labs CBC & Chem 7: 03/07/17 05:09 03/07/17 05:09 Labs: Short CBC 03/07/17 Range/Units 05:09 WBC 8.1 (4.3-11.1) K/mcL Hgb 11.7 (11.5-15.4) g/dL Hct 36.3 (35.3-44.9) % Plt Count 132 L (140-400) K/mcL Neutrophils # 6.7 (1.6-8.9) K/mcL BMP 03/07/17 05:09 Sodium 138 Potassium 3.5 Chloride 109 Carbon Dioxide 25 BUN 8 Creatinine 0.59 Glucose 90 Calcium 8.3 L - ABG Interpretation ABG results: PT/INR, D-dimer PT 13.3 Seconds (9.4-12.1) H 03/05/17 03:45 - Impressions Impressions Echocardiogram 03/05/17 13:57 Impressions: LVEF 55%. Normal LV chamber size, wall thickness and function. Trace mitral regurgitation. Normal mitral valve structure and function, mild annular calcification, trace MR Mild-moderate tricuspid regurgitation. Left Ventricular Wall Motion: Rest Echo Findings All wall segments showed normal motion. Findings: Study Quality * Technically adequate exam. ECG Findings * Normal sinus rhythm. Left Ventricle * LVEF 55%. * Normal LV chamber size, wall thickness and function. Right Ventricle * Normal right ventricular structure and function. Left Atrium * Normal left atrial size. Right Atrium * Normal right atrial size. Aortic Valve * trileaflet, opens well, mild annular calcification Mitral Valve * Normal mitral valve structure and function, mild annular calcification, trace MR mild annular calcificatoin * Trace mitral regurgitation. Tricuspid Valve * Mild-moderate tricuspid regurgitation. * No tricuspid stenosi. * No pulmonary hypertension. Pulmonic Valve * Normal pulmonic valve structure and function. Aorta * Normally sized aortic root. Consult Discharge Plan - Plan Referrals: Bonita Nguyen, SCOOP MACHINE OPERATOR [Primary Care Provider] - (office is closed due to ) <Abdulaziz Lee - Last Filed: 03/07/17 14:33> Date of Encounter: 03/07/17 - Constitutional Vitals: Temp Pulse Resp BP Pulse Ox 97.3 F L 82 20 91/50 97 03/07/17 10:00 03/07/17 11:22 03/07/17 10:00 03/07/17 10:00 03/07/17 10:00 Internal Medicine: Result - Labs CBC & Chem 7: 03/07/17 05:09 03/07/17 05:09 Labs: Short CBC 03/07/17 Range/Units 05:09 WBC 8.1 (4.3-11.1) K/mcL Hgb 11.7 (11.5-15.4) g/dL Hct 36.3 (35.3-44.9) % Plt Count 132 L (140-400) K/mcL Neutrophils # 6.7 (1.6-8.9) K/mcL BMP 03/07/17 05:09 Sodium 138 Potassium 3.5 Chloride 109 Carbon Dioxide 25 BUN 8 Creatinine 0.59 Glucose 90 Calcium 8.3 L - ABG Interpretation ABG results: PT/INR, D-dimer PT 13.3 Seconds (9.4-12.1) H 03/05/17 03:45 - Attending Attestation I conducted a face to face diagnostic evaluation of this patient and my medical decision-making was reviewed with the Resident Physician, Dr Partha Rutherford. I agree with the documented findings, disposition and treatment plan as described except to the extent set forth below: On exam she is somnolent, arousable. Blood pressure is 95/49 has been on the low side throughout. She is asymptomatic. Blood work reviewed and found within normal limits today. Plan: Continue with broad-spectrum IV antibiotics.
[2017-03-07] MEDS: Budesonide/Formoterol 160/4.5 MDI IH SCH ×2 (10:34→20:26)
--- NOTE | 2017-03-07 17:44 | Electrocardiograph Report ---
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
--- NOTE | 2017-03-07 17:49 | Electrocardiograph Report ---
[place] [id number] Test Date: 2017-03-05 Pat Name: Lakia Cortes Department: 110 Room: 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
[2017-03-08] MEDS: Piperacillin/Tazobactam 3.375 GM in D5% in Water 50 ML IVPB SCH (03:08)
[2017-03-08] MEDS: 0.9 % Sodium Chloride 1,000 ML IVC SCH (03:55)
[2017-03-08 04:05] LABS: Basophils % 0.4 %; Eosinophils # 0.1 K/mcL (0.0-0.6); Hemoglobin 11.7 g/dL (11.5-15.4); Immature Granulocytes % 0.9 % (0-4); Lymphocytes # 0.7 K/mcL (0.6-4.6); Lymphocytes % 9.7 %; Mean Corpuscular HGB Conc 32.5 g/dL (31.6-35.5); Mean Corpuscular Hemoglobin 30.7 pg (28.0-33.3); Mean Corpuscular Volume 94.5 fL (83.0-100.0); Mean Platelet Volume 11.8 fL (9.4-12.4); Monocytes # 0.8 K/mcL (0.0-1.3); Monocytes % 10.6 %; Neutrophils # 5.9 K/mcL (1.6-8.9); Platelet Count 151 K/mcL (140-400); Red Blood Count 3.81 M/mcL (3.82-4.97); Red Cell Distribution Width 13.6 % (11.5-14.5); Segmented Neutrophils % 77.4 %
[2017-03-08 04:19] LABS: BUN/Creatinine Ratio 11 (6-26); Blood Urea Nitrogen 7 mg/dL (7-20); Calcium 7.8 mg/dL (8.6-10.8); Carbon Dioxide 25 mEq/L (19-29); Chloride 107 mEq/L (98-109); Glucose 106 mg/dL (70-99); Osmolality,Calculated 286 (280-300); Potassium 3.3 mEq/L (3.5-4.5); Sodium 139 mEq/L (136-145); eGFR For African Americans > 60 (> 60); eGFR For Non-African Americans > 60 (> 60)
[2017-03-08] MEDS: *HR* Heparin 5,000 UNIT/ML VIAL SQ SCH (05:11)
[2017-03-08 07:12] VITALS: BP 90/47
[2017-03-08] MEDS: Aspirin 325 MG TABLET PO SCH (07:36)
[2017-03-08] MEDS: *HR* Digoxin 0.125 MG TABLET PO SCH (07:36)
--- NOTE | 2017-03-08 08:52 | Discharge Summary ---
<Partha Rutherford - Last Filed: 03/08/17 13:29> Date of Encounter: 03/08/17 Time of Encounter: 08:48 - Discharge Diagnosis (1) Severe sepsis Priority: Primary Status: Acute (2) Atrial fibrillation with RVR Priority: Secondary Status: Acute (3) Community acquired pneumonia Priority: Secondary Status: Acute Qualifiers: Laterality: right Lung location: lower lobe of lung Qualified Code(s): J18.1 - Lobar pneumonia, unspecified organism (4) Elevated troponin Priority: Secondary Status: Acute (5) COPD (chronic obstructive pulmonary disease) Priority: Secondary Status: Chronic Qualifiers: COPD type: unspecified COPD Qualified Code(s): J44.9 - Chronic obstructive pulmonary disease, unspecified (6) Alzheimer's dementia Priority: Secondary Status: Chronic Qualifiers: Alzheimer's disease onset: unspecified onset Dementia behavioral disturbance: without behavioral disturbance Qualified Code(s): G30.9 - Alzheimer's disease, unspecified; F02.80 - Dementia in other diseases classified elsewhere without behavioral disturbance; F02.80 - Dementia in other diseases classified elsewhere without behavioral disturbance; F02.80 - Dementia in other diseases classified elsewhere without behavioral disturbance - Discharge Medications Prescriptions: Atorvastatin [Lipitor] 40 mg PO HS #30 tablet Digoxin [Lanoxin] 0.125 mg PO DAILY #30 tablet Docusate [Colace] 100 mg PO BID PRN #20 capsule PRN Reason: Constipation Levofloxacin [Levaquin] 750 mg PO DAILY #4 tablet Home Medications: Albuterol Sulfate [Proair Hfa] 1 puff IH QID 03/04/17 [History] Aspirin [Lo-Dose Aspirin EC] 81 mg PO DAILY 03/04/17 [History] Montelukast [Singulair] 10 mg PO DAILY 03/04/17 [History] Pantoprazole Sodium [Protonix] 40 mg PO DAILY 03/04/17 [History] Potassium Chloride [K-Tab ER] 10 meq PO DAILY 03/04/17 [History] Rivastigmine 1 each TD QDPC 03/04/17 [History] Budesonide/Formoterol 160/4.5 [Symbicort 160/4.5] 2 puff IH BID 03/05/17 [ History] Tiotropium [Spiriva] 1 puff IH DAILY 03/05/17 [History] Atorvastatin [Lipitor] 40 mg PO HS #30 tablet 03/08/17 [Rx] Digoxin [Lanoxin] 0.125 mg PO DAILY #30 tablet 03/08/17 [Rx] Docusate [Colace] 100 mg PO BID PRN #20 capsule 03/08/17 [Rx] Levofloxacin [Levaquin] 750 mg PO DAILY #4 tablet 03/08/17 [Rx] Allergies/Adverse Reactions: 3 Allergy/AdvReac Type Severity Reaction Status Date / Time No Known Allergies Allergy Verified 03/04/17 18:21 Procedures/tests Complete & Pending: Procedures Performed prior 72 hours Category Date Time Status ECG 12 lead ECG [ECG] Routine Y 03/05/17 23:26 Completed EKG [ECG 12 lead ECG] [ECG] Stat Y 03/05/17 19:10 Completed EV echocardiogram Routine Y 03/05/17 13:57 Completed Date of admission: 03/05/17 06:07 Primary care physician: Bonita Nguyen CNP Consults: 03/05/17 02:31 Consult to Nurse Navigator [CONS] Routine Comment: 03/05/17 02:38 Consult to Cardiology [CONS] Routine Comment: Consulting Provider: Cardiology Aliya Reason for Consult: Elevated troponin Call Completed: No 03/05/17 08:34 Consult to Affirmative Action Specialist [CONS] Routine Reason for SW Consult: history of dementia, daughters in room would like assistance with establishing POA/living will Discharging clinician: Partha Rutherford Anticipated date of discharge: 03/08/17 - Patient Status Disposition: Home, Self-Care Condition: Fair Functional capacity at discharge: uses cane/walker Overall status at discharge: patient is progressing back to baseline - Discharge Instructions Instructions: Atrial Fibrillation (DC), Urinary Tract Infection in Women (DC), Sepsis (DC), Pneumonia (DC) Follow Up With: Bonita Nguyen CNP [Primary Care Provider] - 03/16/17 12:45 pm () Foreign Martell CNP [Advanced Practice Nurse] - (OFFICE WILL CALL PATIENT AT HOME WITH FOLLOW UP APPOINTMENT) Additional Instructions: Please follow up with your PCP and applied marine physics professor within 1 week upon discharge If develop worsening breathing or chest pain please return to the ER Stop Cardizem and start on Digoxin, Lipitor, and 4 days of Levaquin for pneumonia - Diet and Activity Activity: increase activity as tolerated Diet: advance to your usual diet Hospital course: Ms. Cortes is a 71 year old female who presented to the ED with 1 day history of lethargy. She has history of Dementia and is a poor historian at baseline, but family including a daughter who lives with patient, were at bedside for most of her stay. Chest x-ray did demonstrate a right lower lobe pneumonia and she had sepsis secondary to this. She was started on Levaquin initially but due to her hypotension she was also added on Vancomycin and Zosyn for broadened coverage. There was a questionable history of A. fib as patient was taking Cardizem 120 mg at home but she was in normal sinus rhythm with frequent PACs. Patient experienced an episode of A. fib with RVR with rates in the 160s as captured on EKG. She was given IV digoxin during that time and cardiology was consulted recommending continuing her on PO digoxin. An echocardiogram was obtained during this visit and was unremarkable other than mild tricuspid regurgitation, EF was 55%. This morning, daughter is at bedside and states that mother had no overnight events and is resting comfortably without any shortness of breath or chest pain. Patient states she is ready to go home and is in no distress. Since she lives with her daughter, patient is safe to go home and that there were no additional needs required upon discharge. She will follow-up with her applied marine physics professor and her primary care physician within one week and will be going home on 4 more days of Levaquin for her pneumonia and will start on digoxin and Lipitor. - Time Spent with Patient Total time spent providing and/or coordinating discharge services: - Constitutional Vitals: Temp Pulse Resp BP Pulse Ox 98.8 F 86 17 90/47 97 03/08/17 07:07 03/08/17 07:38 03/08/17 07:07 03/08/17 07:07 03/08/17 07:07 General appearance: Present: A&O X 1 (only to self), pleasant, no acute distress , answers questions appropriately - Head Head exam: Present: atraumatic, normocephalic - Eye Eye exam: Present: PERRL, conjuntiva pink, sclera anicteric - Neck Neck exam general surgery: Present: supple, trachea midline. Absent: lymphadenopathy - Respiratory Respiratory exam: Present: CTAB. Absent: accessory muscle use, rales, rhonchi, wheezes - Cardiovascular Cardiovascular exam: Present: RRR, +S1, +S2. Absent: diastolic murmur, gallop, rubs, systolic murmur - GI/Abdominal GI/Abdominal exam: Present: normal bowel sounds, soft, no peritoneal signs. Absent: distended, tenderness - Extremities Exam Extremities exam: Present: warm, radial pulses palpable and symmetrical. Absent : calf tenderness, cyanotic, pedal edema - Neurological Exam Neurological exam: Present: alert, no focal deficits. Absent: facial droop, speech deficit - Skin Skin exam: Present: dry, intact <Ducu,Abdulaziz - Last Filed: 03/08/17 18:23> Date of Encounter: 03/08/17 Procedures/tests Complete & Pending: Procedures Performed prior 72 hours Category Date Time Status ECG 12 lead ECG [ECG] Routine Y 03/05/17 23:26 Completed EKG [ECG 12 lead ECG] [ECG] Stat Y 03/05/17 19:10 Completed Date of admission: 03/05/17 06:07 Primary care physician: Bonita Nguyen CNP Consults: 03/05/17 02:31 Consult to Nurse Navigator [CONS] Routine Comment: 03/05/17 02:38 Consult to Cardiology [CONS] Routine Comment: Consulting Provider: Cardiology Aliya Reason for Consult: Elevated troponin Call Completed: No 03/05/17 08:34 Consult to Affirmative Action Specialist [CONS] Routine Reason for SW Consult: history of dementia, daughters in room would like assistance with establishing POA/living will Hospital course: Ms. Cortes is a 71 year old female - Time Spent with Patient Total time spent providing and/or coordinating discharge services: - Constitutional Vitals: Temp Pulse Resp BP Pulse Ox 98.8 F 86 17 90/47 97 03/08/17 07:07 03/08/17 07:38 03/08/17 10:27 03/08/17 07:07 03/08/17 10:27 - Attending Attestation I conducted a face to face diagnostic evaluation of this patient and my medical decision-making was reviewed with the Resident Physician, Dr Partha Rutherford. I agree with the documented findings, disposition and treatment plan as described except to the extent set forth below: Patient is in no acute distress. Blood pressure is 90s over 50s per family member that is her baseline. Telemetry evaluation reveals normal sinus rhythm with no ectopy. Rate 75-80. Continue with Levaquin at home. Medically stable for discharge. Follow-up with PCP.
[2017-03-08] MEDS: Budesonide/Formoterol 160/4.5 MDI IH SCH (10:25)
[2017-03-08] MEDS ORDERED: Levofloxacin 750 MG/150 ML 750 MG/150 ML BAG IVPB SCH (13:00)
== END 2017-03-08 12:46 | disposition home or self-care (01) | DRG 871 ==
LOC: 2NNU
PROVIDERS: ADMIT Hospitalist; ATTEND Internal Medicine

== ENCOUNTER 2017-03-13 01:57 | Inpatient (IN) ==
[2017-03-13] MEDS ORDERED: *HR* Morphine 2 MG/ML SYRINGE IVP PRN ×4 (04:30→23:58)
[2017-03-13] MEDS ORDERED: Naloxone 0.4 MG/ML INJ IVP PRN ×2 (07:41→23:58)
[2017-03-13] MEDS ORDERED: Acetaminophen 325 MG TABLET PO PRN ×2 (07:41→23:58)
[2017-03-13] MEDS ORDERED: 0.9 % Sodium Chloride 1,000 ML IVC SCH ×2 (11:00→23:58)
[2017-03-13] MEDS ORDERED: *HR* Digoxin 0.125 MG TABLET PO SCH (11:00)
[2017-03-13] MEDS ORDERED: Metoprolol XL (24 HR) Succ 25 MG TAB.ER.24H PO SCH (11:00)
[2017-03-13] MEDS ORDERED: *HR* OxyCODONE/APAP 5/325 TABLET PO PRN ×2 (11:28→23:58)
--- NOTE | 2017-03-13 11:30 | Internal Med History&Physical ---
Date of Encounter: 03/13/17 Time of Encounter: 08:40 Assessment and Plan (1) Intertrochanteric fracture of right hip Current visit: Yes Status: Acute Patient with acute right hip intertrochanteric fracture. Will admit inpatient. Patient will be in the hospital for at least 3 midnights. Consult orthopedics. Pain control with intravenous narcotic medications as needed along with oral medications. High risk for complications given her age and use of intravenous narcotic medications. Qualifiers: Encounter type: initial encounter Fracture type: closed Fracture alignment: displaced Qualified Code(s): S72.141A - Displaced intertrochanteric fracture of right femur, initial encounter for closed fracture (2) Pre-op evaluation Current visit: Yes Status: Acute Patient does have history of atrial fibrillation, COPD and she has had mild troponin elevation in the past. She does not have any chest pain at this time and appears to be well compensated at baseline with regards to her COPD. She would be at low to intermediate risk for cardiac/pulmonary complications from her surgery. At this time I would recommend that she proceed with surgery. (3) COPD (chronic obstructive pulmonary disease) Current visit: Yes Status: Chronic Not in acute exacerbation. Patient completed treatment for pneumonia recently. Chest x-ray shows improving obesity. We will place patient on bronchodilators as needed. Qualifiers: COPD type: emphysema Emphysema type: other Qualified Code(s): J43.8 - Other emphysema (4) Atrial fibrillation with RVR Current visit: Yes Status: Chronic Rate controlled at this time. Patient is not on anticoagulation. We will monitor with telemetry. (5) Alzheimer's dementia Current visit: Yes Status: Chronic No acute issues. Patient does have high risk for delirium perioperatively. We will monitor closely Qualifiers: Alzheimer's disease onset: unspecified onset Dementia behavioral disturbance: without behavioral disturbance Qualified Code(s): G30.9 - Alzheimer's disease, unspecified; F02.80 - Dementia in other diseases classified elsewhere without behavioral disturbance; F02.80 - Dementia in other diseases classified elsewhere without behavioral disturbance; F02.80 - Dementia in other diseases classified elsewhere without behavioral disturbance (6) Abdominal aortic aneurysm Current visit: Yes Status: Chronic Abdominal aortic aneurysm. Increased in size compared to prior CT scan done in 2013. Discussed with vascular surgery. No current indication for urgent repair as there is no rupture or leak. Would recommend outpatient follow-up with vascular surgery. Was also recommended to start patient on empiric beta bandar to minimize perioperative risk. We will start Toprol-XL 12.5 mg by mouth daily Qualifiers: Presence of rupture: without rupture Qualified Code(s): I71.4 - Abdominal aortic aneurysm, without rupture (7) DVT prophylaxis Current visit: Yes Status: Acute With subcutaneous heparin Internal Medicine - H&P: HPI Chief complaint: Right hip apin after fall Admitted From: Emergency Dept Plans for Post Hospital Care: Home History of present illness: Ms. Cortes is a 71 year old female patient with a history of COPD, arthritis, dementia, history esophageal reflux disease and hyperlipidemia who had recently been hospitalized here for pneumonia and was discharged on oral antibiotics earlier this week presented to the ER with complaints of pain in her right hip after a fall. She reports that she suddenly fell without any prodromal symptoms. She denies any dizziness or palpitations at that time but she does have occasional episodes of dizziness. She began to have severe right hip pain following the fall and was brought into the ER. She was found to have acute comminuted intertrochanteric fracture of the proximal right femur and so was transferred over here for further evaluation and management. Presently her pain is severe but controlled with narcotic intravenous pain medications. She denies any chest pain or palpitations. She does have a history of atrial fibrillation but is not on any anticoagulation. She denies any history of shortness of breath or pedal edema although she does not climb stairs at baseline. She had a 2-D echocardiogram done last week while to moderate tricuspid regurgitation. Past Med Surg Social Fam HX - Past Medical History Attestation: Yes The following information was validated with the patient. Source: patient, old records reviewed Medical history: arthritis, atrial fibrillation, COPD, dementia, GERD, hyperlipidemia, other Psychiatric history: no psych history - Past Surgical History Surgical History: cholecystectomy, hysterectomy - Social History Smoking Status: Former smoker Smokeless Tobacco Status: No Alcohol use: none Drug use: none - Family History Mother Name: ALYCIA MOHAMUD Living Status: Hx Family Endocrine Disorder: Yes (DM) Internal Medicine - H&P: Meds Albuterol Sulfate [Proair Hfa] 1 puff IH QID 03/04/17 [History] Aspirin [Lo-Dose Aspirin EC] 81 mg PO DAILY 03/04/17 [History] Montelukast [Singulair] 10 mg PO DAILY 03/04/17 [History] Pantoprazole Sodium [Protonix] 40 mg PO DAILY 03/04/17 [History] Potassium Chloride [K-Tab ER] 10 meq PO DAILY 03/04/17 [History] Rivastigmine 1 each TD QDPC 03/04/17 [History] Budesonide/Formoterol 160/4.5 [Symbicort 160/4.5] 2 puff IH BID 03/05/17 [ History] Tiotropium [Spiriva] 1 puff IH DAILY 03/05/17 [History] Atorvastatin [Lipitor] 40 mg PO HS #30 tablet 03/08/17 [Rx] Digoxin [Lanoxin] 0.125 mg PO DAILY #30 tablet 03/08/17 [Rx] Docusate [Colace] 100 mg PO BID PRN #20 capsule 03/08/17 [Rx] Levofloxacin [Levaquin] 750 mg PO DAILY #4 tablet 03/08/17 [Rx] 3 Allergy/AdvReac Type Severity Reaction Status Date / Time No Known Allergies Allergy Verified 03/13/17 00:31 All Systems PM: A 10-system review of systems was performed and is negative for pertinent findings except as documented above in the HPI. - Constitutional Constitutional: no chills, no fever(s), no night sweats - EENT Eyes: no change in vision, no discharge, no pain, no photophobia Ears: no ear discharge, no ear pain, no tinnitus Nose, mouth and throat: no dysphagia, no nasal discharge, no neck pain, no sore throat - Cardiovascular Cardiovascular ROS IM: no chest pain, no diaphoresis, no dyspnea, no lightheadedness, no palpitations, no syncope - Respiratory Respiratory: no cough, no dyspnea, no wheezing, no excessive phlegm production - Gastrointestinal Gastrointestinal: no abdominal pain, no diarrhea, no hematemesis, no hematochezia, no melena, no nausea, no vomiting - Genitourinary Genitourinary: no change in urinary stream, no dysuria, no flank pain, no hematuria - Musculoskeletal Musculoskeletal ROS IM: no numbness, no tingling Additional comments: Pain in the right hip - Integumentary Integumentary IM: no rash, no unusual bruising - Neurological Neurological ROS: no confusion, no convulsions, no focal weakness, no numbness, no tingling, no tremor(s) - Hematologic/Lymphatic Hematologic/Lymphatic: no easy bruising - Constitutional Vitals: Temp Pulse Resp BP Pulse Ox 97.3 F L 86 16 109/69 96 03/13/17 11:02 03/13/17 11:02 03/13/17 11:02 03/13/17 11:02 03/13/17 11:02 General appearance: Present: cooperative, A&O X 3, answers questions appropriately Exam: Moderate distress - Eye Eye exam: Present: EOMI, PERRL, conjuntiva pink, sclera anicteric - Neck Neck exam general surgery: Present: supple, trachea midline. Absent: lymphadenopathy - Respiratory Respiratory exam: Present: CTAB. Absent: accessory muscle use, rales, rhonchi, wheezes - Cardiovascular Cardiovascular exam: Present: irregular rhythm, +S1, +S2. Absent: diastolic murmur, gallop, rubs, systolic murmur - GI/Abdominal GI/Abdominal exam: Present: normal bowel sounds, soft, no peritoneal signs. Absent: distended, tenderness - Extremities Exam Extremities exam: Present: tenderness (In the right hip region), warm, radial pulses palpable and symmetrical. Absent: calf tenderness, cyanotic, full ROM, pedal edema Additional comments: Decreased range of motion at right hip due to pain - Neurological Exam Neurological exam: Present: alert, oriented X3, no focal deficits. Absent: facial droop, speech deficit - Skin Skin exam: Present: dry, intact
[2017-03-13] MEDS ORDERED: *HR* Morphine 2 MG/ML SYRINGE IVP SCH (12:00)
--- NOTE | 2017-03-13 14:47 | Orthopedic Consult Note ---
Date of Encounter: 03/13/17 Time of Encounter: 14:39 History of Present Illness Chief complaint: Right hip pain HPI: Ms. Cortes is a 71 year old female who sustained a fall in her home the night before. She had immediate pain and was unable to ambulate. Seen in emergency room at [facility] where a CT scan of the pelvis was performed, this revealed evidence of a intertrochanteric fracture right hip. She is admitted to [facility] for further evaluation and management. Patient does have a significant past medical history. She however was seen and evaluated by the internal medicine hospitalist felt that the patient was able to proceed with surgery without any further evaluation or treatment. For complete history and physical data please further completed portion of the medical record. Pertinent orthopedic examination reveals a cachectic-appearing white female in moderate distress secondary to right hip pain. Examination of the right lower extremity reveals it to be shortened and mildly rotated. Distal neurosensory exam is grossly intact. I did review the CT scan. This reveals a comminuted and displaced fracture of the intertrochanteric portion of the right hip. Impression: Displaced comminuted intertrochanteric fracture right hip Plan discussed with the patient the surgical management of this fracture involving placement of a trochanteric femoral nail. We discussed the surgical procedure including potential risks and complications including but not limited to bleeding, infection, blood clots, stiffness, malunion and nonunion and the possibility of leg length or rotational deformities. Patient is in agreement, she however is waiting for her daughter to return to discuss the surgery and signed the informed consent. If this is completed anticipate proceeding with surgery tonight. Thank you very much for allowing me to see care for Mrs. Cortes. Sincerely, Tyrone Sears,DO Past Med Surg Social Fam HX - Past Medical History Medical history: arthritis, atrial fibrillation, COPD, dementia, GERD, hyperlipidemia, other Psychiatric history: no psych history - Past Surgical History Surgical History: cholecystectomy, hysterectomy - Social History Smoking Status: Former smoker Smokeless Tobacco Status: No Alcohol use: none Drug use: none - Family History Mother Name: ALYCIA MOHAMUD Living Status: Hx Family Endocrine Disorder: Yes (DM) Medications and Allergies Albuterol Sulfate [Proair Hfa] 1 puff IH QID 03/04/17 [History] Aspirin [Lo-Dose Aspirin EC] 81 mg PO DAILY 03/04/17 [History] Montelukast [Singulair] 10 mg PO DAILY 03/04/17 [History] Pantoprazole Sodium [Protonix] 40 mg PO DAILY 03/04/17 [History] Potassium Chloride [K-Tab ER] 10 meq PO DAILY 03/04/17 [History] Rivastigmine 1 each TD QDPC 03/04/17 [History] Budesonide/Formoterol 160/4.5 [Symbicort 160/4.5] 2 puff IH BID 03/05/17 [ History] Tiotropium [Spiriva] 1 puff IH DAILY 03/05/17 [History] Atorvastatin [Lipitor] 40 mg PO HS #30 tablet 03/08/17 [Rx] Digoxin [Lanoxin] 0.125 mg PO DAILY #30 tablet 03/08/17 [Rx] Docusate [Colace] 100 mg PO BID PRN #20 capsule 03/08/17 [Rx] Levofloxacin [Levaquin] 750 mg PO DAILY #4 tablet 03/08/17 [Rx] 3 Allergy/AdvReac Type Severity Reaction Status Date / Time No Known Allergies Allergy Verified 03/13/17 00:31 All Systems Reviewed: A 10-system review of systems was performed and is negative for pertinent findings except as documented above in the HPI. Physical Exam - Constitutional Vitals: Temp Pulse Resp BP Pulse Ox 97.3 F L 86 16 109/69 96 03/13/17 11:02 03/13/17 11:02 03/13/17 11:02 03/13/17 11:02 03/13/17 11:02 Results - Labs Labs: All other labs normal. - Diagnostic results Hip CT: image reviewed Consult Discharge Plan - Plan Referrals: Bonita Nguyen, [facility] [Primary Care Provider] -
[2017-03-13] MEDS ORDERED: Ipratropium/Albuterol Neb 3 ML IH PRN ×2 (15:00→23:58)
--- NOTE | 2017-03-13 15:37 | Anesthesia Evaluation PreOp ---
Date of Encounter: 03/13/17 Time of Encounter: 19:27 - Past History Planned Operation: Right hip TFN Cardiac History: Hyperlipidemia, Arrhythmia (atrial fibrillation with RVR this admission) Pulmonary History: Former smoker, COPD [employer] History: Other (dementia) Other Medical History: GERD Anesthesia History: Past Anesthesia (cholecystectomy, hysterectomy), Problems ( slow to wake up) Alcohol Use: none Drug use: none Medications and Allergies Albuterol Sulfate [Proair Hfa] 1 - 2 puff IH Q6H PRN 03/04/17 [History] Aspirin [Lo-Dose Aspirin EC] 81 mg PO DAILY 03/04/17 [History] Montelukast [Singulair] 10 mg PO DAILY 03/04/17 [History] Pantoprazole Sodium [Protonix] 40 mg PO DAILY 03/04/17 [History] Potassium Chloride [K-Tab ER] 10 meq PO DAILY 03/04/17 [History] Rivastigmine 1 patch TD QDPC 03/04/17 [History] Budesonide/Formoterol 160/4.5 [Symbicort 160/4.5] 2 puff IH BID 03/05/17 [ History] Tiotropium [Spiriva] 18 mcg IH DAILY 03/05/17 [History] Atorvastatin [Lipitor] 40 mg PO HS #30 tablet 03/08/17 [Rx] Digoxin [Lanoxin] 0.125 mg PO DAILY #30 tablet 03/08/17 [Rx] Docusate [Colace] 100 mg PO BID PRN #20 capsule 03/08/17 [Rx] Diltiazem CD (24hr) [Cardizem CD] 120 mg PO DAILY 03/13/17 [History] 3 Allergy/AdvReac Type Severity Reaction Status Date / Time No Known Allergies Allergy Verified 03/13/17 00:31 - Meds/Allergy Pre-op Review Medications Reviewed: Yes Allergies Reviewed: Yes Beta Blockers on Current Med List: Yes If Beta Blockers taken, Date/Time (Last Dose taken): 03-13-17 metoprolol xl at 11:16 (new medication this admit) Anesthesia Results - Labs Laboratory Tests 03/13/17 03/13/17 03/13/17 01:00 01:00 01:00 WBC 14.5 H D Hgb 13.2 D Hct 40.1 Plt Count 301 D PT 12.1 INR 1.1 APTT 25.6 L Sodium 139 Potassium 3.3 L Chloride 101 Carbon Dioxide 26 BUN 13 Creatinine 0.69 Est GFR ( Amer) > 60 Est GFR (Non-Af Amer) > 60 BUN/Creatinine Ratio 19 Glucose 147 H Calculated Osmolality 291 Calcium 8.3 L - Imaging EKG: report reviewed, image reviewed (ATRIAL FIBRILLATION WITH RAPID VENTRICULAR RESPONSE) Additional studies: 03-05-2017 TTE: Impressions: LVEF 55%. Normal LV chamber size, wall thickness and function. Trace mitral regurgitation. Normal mitral valve structure and function, mild annular calcification, trace MR Mild-moderate tricuspid regurgitation. Anesthesia Exam Last Vital Signs Temp 97.3 F L 03/13/17 11:02 Pulse 86 03/13/17 11:02 Resp 16 03/13/17 11:02 BP 109/69 03/13/17 11:02 Pulse Ox 96 03/13/17 11:02 - HEENT Pupil (Motor): Pupils equal, EOMI Mallampati: III Teeth: Missing, Poor dentition (very few teeth remain) Oral Opening: Greater than 3 - [employer] LOC: Confused - Cardiac Rhythm: Regular Murmur: None - Pulmonary Breath Sounds: bilateral Clear Respiratory Effort: Symmetrical Anesthesia Assess/Plan ASA Score: 3 Modified Rc Scale for Level of Consciousness: Cooperative, oriented, and tranquil Anesthetic Plan: General Monitoring Plan: Standard Monitors Recovery Plan: PACU
[2017-03-13] MEDS ORDERED: *HR* FentaNYL (PF) 100 MCG/2 ML VIAL ONE (17:14)
[2017-03-13] MEDS ORDERED: *HR* Propofol 200 MG/20 ML VIAL IVP ONE (17:15)
[2017-03-13] MEDS ORDERED: Ondansetron 4 MG/2 ML VIAL ONE (17:17)
[2017-03-13] MEDS ORDERED: Dexamethasone 4 MG/ML VIAL ONE (17:17)
[2017-03-13] MEDS ORDERED: *HR* Heparin 5,000 UNIT/ML VIAL SQ SCH (18:00)
[2017-03-13] MEDS ORDERED: Albuterol 2.5 MG/3 ML NEBULIZER ONE (19:15)
[2017-03-13] MEDS ORDERED: Albuterol 2.5 MG/3 ML NEBULIZER IH ONE (19:20)
[2017-03-13] MEDS ORDERED: Ringers Solution, Lactated 1,000 ML IVC SCH ×2 (19:30→23:58)
[2017-03-13] MEDS ORDERED: EPHEDrine 50 MG/ML VIAL ONE (20:18)
[2017-03-13] MEDS ORDERED: *HR* HYDROmorphone (PF) 1 MG/ML SYRINGE IVP PRN (20:24)
[2017-03-13] MEDS ORDERED: Ketorolac 30 MG/ML VIAL ONE (20:49)
--- NOTE | 2017-03-13 21:43 | Operative Note ---
Date of procedure: 03/13/17 Pre-op diagnosis: Intertrochanteric fracture right hip Post-op diagnosis: same Procedure: #1. Intramedullary nailing right hip #2. Fluoroscopic guidance for IM nailing right hip Implants: Synthes 12 mm x 170 mm x 130 degree angle TFNA with an 11 mm x 105 mm helical blade and a 32 mm x 5.0 mm distal locking screw Complications: None Anesthesia: GETA Surgeon: Tyrone Sears Estimated blood loss (cc): 50 Specimen: None Condition: stable Disposition: PACU Procedure in Detail: Gross findings: Preoperative x-rays were not obtained however a CT scan was consistent with a comminuted intertrochanteric fracture with varus angulation. Intraoperative findings were as anticipated with a somewhat comminuted intertrochanteric fracture. The fracture was able to be reduced and held in near anatomic position with a trochanteric femoral nail. Fluoroscopy was used to guide the reduction as well as guiding placement of the implants. No complicating features were encountered. Procedure: Patient is taking the operating room and while in the hospital bed was administered general anesthesia. Patient was then transferred to the [facility] fracture table. Right lower extremity was placed in longitudinal traction and the left lower extremity positioned out of harm's way and well leg fox. Fluoroscopy was introduced and used to guide the reduction which was accomplished with a combination of slight traction adduction and some internal rotation. Once alignment was verified to be excellent right hip was prepped and draped in normal standard fashion for surgery. Incision was created above the level of trochanter dissection was carried through the subcutaneoustissue down the level of the tensor fascia jose which was split. Dissection was carried down to the greater trochanter. Guidepin was placed through the tip of the trochanter into the femoral canal distally. Coring-type reamer was used to open up the greater trochanter. At this time the selected nail was placed on the insertion jig passed over the wire and placed into the femur. A well fitting implant was noted. The nail was placed at the appropriate level and this was now followed by using the 130 degree guide to create a secondary incision for placement of the helical blade. Again fluoroscopic guidance the guidepin was placed into the femoral head and a selectively slightly inferior position on the AP view and centrally on the lateral view. Position was noted to be well contained. Pin length was measured and a 105 mm helical blade was selected. Head and neck were then reamed. The helical blade was then placed with excellent purchase. The fracture site was then compressed with fluoroscopic verification. At this time utilizing the distal screw guide a 30 mm x 5.0 mm distal locking screw was placed. The insertion jig was then removed. Final fluoroscopic views were taken in multiple planes verifying reduction of the fracture and position of the implants. With implants in place attention was now paid to closure. Wounds were irrigated with saline solution. Fascia was closed in each incision with 0 undyed Vicryl followed by 2-0 undyed Vicryl placed in the subtendinous tissue and then skin approximation with a running 30 strata fix. This is followed by skin glue and then operative foam. Patient was then transferred from the fracture table hospital bed, awakened from anesthesia and and transferred to the postanesthesia care unit in stable and satisfactory condition. All sponge and needle evidence for counts are correct. No specimens were sent for pathology.
--- NOTE | 2017-03-13 21:46 | Anesthesia Evaluation Post Op ---
Date of Encounter: 03/13/17 Time of Encounter: 21:46 - Vital Signs Vital Signs: Last Vital Signs Temp 97.9 F 03/13/17 21:20 Pulse 92 03/13/17 21:41 Resp 19 03/13/17 21:41 BP 119/62 03/13/17 21:41 Pulse Ox 97 03/13/17 21:41 - Lungs Lungs: Clear Ascult./Percussion - Airway Airway: Non-obstructed - Cardiovascular Regular Rate - Mental Status Mental Status: Baseline Status - Pain Pain Scale: 2 - Nausea Vomiting Nausea Vomiting: Not Present - Hydration Hydration: NPO - Discharge PostOp Status: Transfer Patient to floor
[2017-03-13] MEDS ORDERED: Budesonide/Formoterol 160/4.5 MDI IH SCH (22:00)
[2017-03-13] MEDS ORDERED: ceFAZolin 2,000 MG in Water for inj. (sterile) 20 ML IVP SCH (23:58)
[2017-03-14] MEDS: CeFAZolin Premix DUPLEX 2,000 MG/50 ML BAG IVPB SCH ×2 (00:57→09:59)
[2017-03-14 05:12] LABS: Basophils % 0.1 %; Hematocrit 29.9 % (35.3-44.9); Immature Granulocytes % 0.6 % (0-4); Lymphocytes # 0.8 K/mcL (0.6-4.6); Lymphocytes % 4.5 %; Mean Corpuscular HGB Conc 31.4 g/dL (31.6-35.5); Mean Corpuscular Hemoglobin 30.1 pg (28.0-33.3); Mean Corpuscular Volume 95.8 fL (83.0-100.0); Mean Platelet Volume 11.3 fL (9.4-12.4); Monocytes # 0.5 K/mcL (0.0-1.3); Monocytes % 3.1 %; Neutrophils # 15.4 K/mcL (1.6-8.9); Platelet Count 207 K/mcL (140-400); Red Blood Count 3.12 M/mcL (3.82-4.97); Red Cell Distribution Width 13.9 % (11.5-14.5); Segmented Neutrophils % 91.7 %
[2017-03-14 05:13] LABS: Hemoglobin 9.4 g/dL (11.5-15.4)
[2017-03-14] MEDS ORDERED: *HR* Heparin 5,000 UNIT/ML VIAL SQ SCH (06:00)
[2017-03-14 06:01] LABS: BUN/Creatinine Ratio 18 (6-26); Blood Urea Nitrogen 10 mg/dL (7-20); Calcium 7.6 mg/dL (8.6-10.8); Carbon Dioxide 25 mEq/L (19-29); Chloride 106 mEq/L (98-109); Glucose 133 mg/dL (70-99); Osmolality,Calculated 287 (280-300); Potassium 3.8 mEq/L (3.5-4.5); Sodium 138 mEq/L (136-145); eGFR For African Americans > 60 (> 60); eGFR For Non-African Americans > 60 (> 60)
[2017-03-14] MEDS ORDERED: 0.9 % Sodium Chloride 500 ML IVC ONE (06:58)
[2017-03-14 07:28] LABS: Hematocrit 34.6 % (35.3-44.9); Hemoglobin 10.8 g/dL (11.5-15.4)
[2017-03-14] MEDS ORDERED: Rivastigmine Patch 4.6 MG PATCH.TD24 TD SCH (09:00)
[2017-03-14] MEDS ORDERED: Metoprolol XL (24 HR) Succ 25 MG TAB.ER.24H PO SCH (09:00)
[2017-03-14] MEDS: *HR* Digoxin 0.125 MG TABLET PO SCH (09:58)
[2017-03-14] MEDS: Rivastigmine Patch 4.6 MG PATCH.TD24 TD SCH (09:58)
[2017-03-14] MEDS: Metoprolol XL (24 HR) Succ 25 MG TAB.ER.24H PO SCH (09:59)
[2017-03-14] MEDS ORDERED: Tiotropium 18 MCG inhalation IH SCH (10:00)
[2017-03-14] MEDS: Tiotropium 18 MCG inhalation IH SCH (10:32)
[2017-03-14] MEDS: Budesonide/Formoterol 160/4.5 MDI IH SCH ×2 (10:33→20:44)
--- NOTE | 2017-03-14 11:21 | Internal Med Progress Note ---
Date of Encounter: 03/14/17 Time of Encounter: 08:50 - Assessment and plan (1) Intertrochanteric fracture of right hip Current Visit: Yes Status: Acute Assessment and plan: Status post intramedullary nailing of right hip. We will start physical therapy today. Patient will need placement to skilled rehabilitation. Continue supportive care. Pain control. Qualifiers: Encounter type: initial encounter Fracture type: closed Fracture alignment: displaced Qualified Code(s): S72.141A - Displaced intertrochanteric fracture of right femur, initial encounter for closed fracture (2) Hypotension Current Visit: Yes Status: Acute Assessment and plan: Most likely due to pain medications . We will monitor vital signs closely. Hold antihypertensives. We will bolus intravenous fluids as needed. Hemoglobin levels has stable post surgery. Moderate risk for complications. Does have leukocytosis but no signs of infection at this time. Qualifiers: Hypotension type: hypotension due to drug Qualified Code(s): I95.2 - Hypotension due to drugs (3) COPD (chronic obstructive pulmonary disease) Current Visit: Yes Status: Chronic Assessment and plan: Not in acute exacerbation. Continue bronchodilators as needed Qualifiers: COPD type: emphysema Emphysema type: other Qualified Code(s): J43.8 - Other emphysema (4) Atrial fibrillation with RVR Current Visit: Yes Status: Chronic Assessment and plan: Rate controlled. Continue digoxin. Not on anticoagulation. Will place patient on Lovenox for DVT prophylaxis from hip surgery. (5) Alzheimer's dementia Current Visit: Yes Status: Chronic Assessment and plan: Will monitor for signs of delirium. Qualifiers: Alzheimer's disease onset: unspecified onset Dementia behavioral disturbance: without behavioral disturbance Qualified Code(s): G30.9 - Alzheimer's disease, unspecified; F02.80 - Dementia in other diseases classified elsewhere without behavioral disturbance; F02.80 - Dementia in other diseases classified elsewhere without behavioral disturbance; F02.80 - Dementia in other diseases classified elsewhere without behavioral disturbance (6) Abdominal aortic aneurysm Current Visit: Yes Status: Chronic Assessment and plan: Stable. Follow up outpatient with programmer analyst/vascular surgery. Qualifiers: Presence of rupture: without rupture Qualified Code(s): I71.4 - Abdominal aortic aneurysm, without rupture (7) DVT prophylaxis Current Visit: Yes Status: Acute Assessment and plan: With Lovenox. - Subjective Interval history: Patient underwent surgery yesterday with intramedullary nailing of right hip. Currently very somnolent due to pain medications. Blood pressure has been low overnight and patient received normal saline bolus. - Constitutional Vitals: Temp Pulse Resp BP Pulse Ox 97.1 F L 103 18 92/51 95 03/14/17 07:28 03/14/17 07:28 03/14/17 10:32 03/14/17 07:28 03/14/17 10:32 General appearance: Present: cooperative, mild distress, answers questions appropriately Exam: Patient is currently very somnolent. Unable to stay awake long enough to answer questions. - Respiratory Respiratory exam: Present: CTAB. Absent: accessory muscle use, rales, rhonchi, wheezes - Cardiovascular Cardiovascular exam: Present: RRR, +S1, +S2. Absent: diastolic murmur, gallop, rubs, systolic murmur - GI/Abdominal GI/Abdominal exam: Present: normal bowel sounds, soft, no peritoneal signs. Absent: distended, tenderness - Extremities Exam Extremities exam: Present: tenderness (Right hip region), warm, radial pulses palpable and symmetrical. Absent: calf tenderness, cyanotic, pedal edema - Neurological Exam Neurological exam: Present: altered. Absent: facial droop, speech deficit - Skin Skin exam: Present: dry, intact Internal Medicine: Result - Labs CBC & Chem 7: 03/14/17 07:08 03/14/17 04:39 Labs: Short CBC 03/14/17 03/14/17 Range/Units 04:39 07:08 WBC 16.8 H (4.3-11.1) K/mcL Hgb 9.4 L D 10.8 L (11.5-15.4) g/dL Hct 29.9 L 34.6 L (35.3-44.9) % Plt Count 207 (140-400) K/mcL Neutrophils # 15.4 H (1.6-8.9) K/mcL BMP 03/14/17 04:39 Sodium 138 Potassium 3.8 Chloride 106 Carbon Dioxide 25 BUN 10 Creatinine 0.55 L Glucose 133 H Calcium 7.6 L - Impressions Impressions Fluoroscopy 03/13/17 19:45 IMPRESSION: Intraprocedural fluoroscopic spot images as above. See separate procedure report for more information. D/ / Nigel Singleton MD / Nigel Singleton MD Interpreting Provider: Nigel Singleton MD Hip X-Ray 03/13/17 19:45 IMPRESSION: Intraprocedural fluoroscopic spot images as above. See separate procedure report for more information. D/ / Nigel Singleton MD / Nigel Singleton MD Interpreting Provider: Nigel Singleton MD - VTE Documentation of Mechanical Device: Venous foot pump, device Consult Discharge Plan - Plan Referrals: Bonita Nguyen CNP [Primary Care Provider] -
--- NOTE | 2017-03-14 15:50 | Orthopedics Progress Note ---
Date of Encounter: 03/14/17 Time of Encounter: 15:48 Subjective Principal diagnosis: Right hip fracture Interval history: Patient is postop day #1 from IM nailing of a right hip fracture. She is sleeping soundly. She is doing fairly well overall per her daughter. Vital signs are stable. She is afebrile. Hip incision dressings are clean and dry. Neurovascular exam is intact. There is some leg swelling is anticipated. Hemoglobin is 10.8. Platelet count normal. impression: POD #1 IM nailing right hip Recommendation: Ambulate with weightbearing as tolerated. No limitations in regards to the right hip. Recheck labs in a.m. Orthopedic status is stable. Objective Vital signs: Vital Signs Temp Pulse Resp BP Pulse Ox 03/14/17 11:00 97.6 F 98 16 98/56 95 03/14/17 10:32 18 95 03/14/17 07:28 97.1 F L 103 18 92/51 03/14/17 04:10 97.8 F 83 16 90/51 99 03/14/17 01:15 97.8 F 88 16 98/62 98 03/13/17 23:15 98.1 F 84 16 102/64 95 03/13/17 22:45 98.2 F 16 102/56 98 03/13/17 22:15 97.8 F 79 16 106/56 98 03/13/17 21:51 98.1 F 86 15 110/49 97 03/13/17 21:41 92 19 119/62 97 03/13/17 21:30 93 20 119/49 98 03/13/17 21:20 97.9 F 94 20 115/54 100 03/13/17 18:29 98.2 F 78 15 104/66 92 03/13/17 17:04 98.7 F 81 14 106/64 97 Intake and Output 03/13/17 03/14/17 03/14/17 23:59 07:59 15:59 Intake Total 50 / 50 Output Total 50 / 50 Balance -50 / -50 50 / 50 Intake: IV Fluids 50 / 50 Ancef Premix DUPLEX 2,000 mg In 50 / 50 50 ml @ 100 mls/hr IVPB Q8H KIMBER Rx#:[id number] Output: Estimated Blood Loss 50 / 50 Other: Weight 47 kg Patient Weight 03/14/17 23:59 Weight 47 kg - Labs CBC & BMP: 03/14/17 07:08 03/14/17 04:39 Labs: Abnormal lab results WBC 16.8 K/mcL (4.3-11.1) H 03/14/17 04:39 RBC 3.12 M/mcL (3.82-4.97) L 03/14/17 04:39 Hgb 10.8 g/dL (11.5-15.4) L 03/14/17 07:08 Hct 34.6 % (35.3-44.9) L 03/14/17 07:08 MCHC 31.4 g/dL (31.6-35.5) L 03/14/17 04:39 Neutrophils # 15.4 K/mcL (1.6-8.9) H 03/14/17 04:39 Creatinine 0.55 mg/dL (0.57-1.11) L 03/14/17 04:39 Glucose 133 mg/dL (70-99) H 03/14/17 04:39 Calcium 7.6 mg/dL (8.6-10.8) L 03/14/17 04:39 - VTE Documentation of Mechanical Device: Venous foot pump, device Consult Discharge Plan - Plan Referrals: Bonita Nguyen, RADIOLOGY TRANSPORTER [Primary Care Provider] -
--- NOTE | 2017-03-14 17:39 | Electrocardiograph Report ---
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
[2017-03-14] MEDS ORDERED: Ondansetron 4 MG/2 ML VIAL IVP PRN (17:45)
[2017-03-14] MEDS: *HR* Enoxaparin 40 MG/0.4 ML SYRINGE SQ SCH (17:51)
[2017-03-15 04:59] LABS: Magnesium 1.7 mg/dL (1.6-2.6)
[2017-03-15 05:09] LABS: Digoxin 0.4 ng/mL (0.8-2.0); Thyroid Stimulating Hormone 0.3 mcIU/mL (0.350-4.840)
[2017-03-15] MEDS: *HR* Enoxaparin 40 MG/0.4 ML SYRINGE SQ SCH ×2 (06:27→16:54)
[2017-03-15 08:29] LABS: Basophils % 0.3 %; Eosinophils # 0.2 K/mcL (0.0-0.6); Eosinophils % 1.6 %; Hematocrit 27.4 % (35.3-44.9); Immature Granulocytes % 0.6 % (0-4); Lymphocytes # 1.3 K/mcL (0.6-4.6); Lymphocytes % 8.5 %; Mean Corpuscular HGB Conc 31.8 g/dL (31.6-35.5); Mean Corpuscular Hemoglobin 30.1 pg (28.0-33.3); Mean Corpuscular Volume 94.8 fL (83.0-100.0); Mean Platelet Volume 11.2 fL (9.4-12.4); Monocytes # 0.9 K/mcL (0.0-1.3); Monocytes % 5.8 %; Neutrophils # 12.4 K/mcL (1.6-8.9); Platelet Count 232 K/mcL (140-400); Red Blood Count 2.89 M/mcL (3.82-4.97); Red Cell Distribution Width 13.9 % (11.5-14.5); Segmented Neutrophils % 83.2 %
[2017-03-15 08:33] LABS: Hemoglobin 8.7 g/dL (11.5-15.4)
[2017-03-15] MEDS: Metoprolol XL (24 HR) Succ 25 MG TAB.ER.24H PO SCH ×2 (08:47→08:56)
[2017-03-15] MEDS: Rivastigmine Patch 4.6 MG PATCH.TD24 TD SCH (08:47)
[2017-03-15] MEDS: *HR* Digoxin 0.125 MG TABLET PO SCH (08:48)
[2017-03-15] MEDS: Budesonide/Formoterol 160/4.5 MDI IH SCH ×2 (10:39→22:10)
[2017-03-15] MEDS: Tiotropium 18 MCG inhalation IH SCH (10:39)
--- NOTE | 2017-03-15 14:59 | Internal Med Progress Note ---
Date of Encounter: 03/15/17 Time of Encounter: 08:50 - Assessment and plan (1) Intertrochanteric fracture of right hip Current Visit: Yes Status: Acute Assessment and plan: Status post IM nailing of right hip. Postop day 2. Evaluated by physical therapy today. Recommend placement to skilled rehabilitation. Continue supportive care. Pain control. Moderate risk for complications. line worker consulted to make arrangements for placement. Qualifiers: Encounter type: initial encounter Fracture type: closed Fracture alignment: displaced Qualified Code(s): S72.141A - Displaced intertrochanteric fracture of right femur, initial encounter for closed fracture (2) Hypotension Current Visit: Yes Status: Acute Assessment and plan: Blood pressure is improved but still on the lower end of normal. We will continue to hold antihypertensives. Qualifiers: Hypotension type: hypotension due to drug Qualified Code(s): I95.2 - Hypotension due to drugs (3) COPD (chronic obstructive pulmonary disease) Current Visit: Yes Status: Chronic Assessment and plan: Not in acute exacerbation. Qualifiers: COPD type: emphysema Emphysema type: other Qualified Code(s): J43.8 - Other emphysema (4) Atrial fibrillation with RVR Current Visit: Yes Status: Chronic Assessment and plan: Rate controlled. Currently on anticoagulation with Lovenox due to right hip surgery. (5) Alzheimer's dementia Current Visit: Yes Status: Chronic Assessment and plan: No signs of delirium. No other acute issues. Continue Exelon Qualifiers: Alzheimer's disease onset: unspecified onset Dementia behavioral disturbance: without behavioral disturbance Qualified Code(s): G30.9 - Alzheimer's disease, unspecified; F02.80 - Dementia in other diseases classified elsewhere without behavioral disturbance; F02.80 - Dementia in other diseases classified elsewhere without behavioral disturbance; F02.80 - Dementia in other diseases classified elsewhere without behavioral disturbance (6) Abdominal aortic aneurysm Current Visit: Yes Status: Chronic Assessment and plan: Follow-up outpatient with vascular surgery and cardiology. No acute issues. Blood pressure has been low since yesterday so beta bandar has been held. May resume once blood pressure improves. Qualifiers: Presence of rupture: without rupture Qualified Code(s): I71.4 - Abdominal aortic aneurysm, without rupture (7) DVT prophylaxis Current Visit: Yes Status: Acute Assessment and plan: With Lovenox subcutaneous (8) Anemia Current Visit: Yes Status: Acute Assessment and plan: Acute on chronic due to surgery and hemodilution. Hemoglobin 8.7 today. We will monitor blood counts. If hemoglobin decreases below 8, consider PRBC transfusion Qualifiers: Anemia type: other cause Other causes of anemia: other cause, not classified Qualified Code(s): D64.89 - Other specified anemias (9) Leukocytosis Current Visit: Yes Status: Acute Assessment and plan: Present on admission. Likely reactive due to fracture and surgery. No signs of infection at this time. No indication for antibiotics. Trending down. Qualifiers: Leukocytosis type: leukemoid reaction Qualified Code(s): D72.823 - Leukemoid reaction - Subjective Interval history: Patient is lying in bed and somnolent. Awakes easily. Answers questions appropriately. Denies any new complaints besides pain with movement at her right hip. No dizziness or lightheadedness. No fever or chills reported overnight. - Constitutional Vitals: Temp Pulse Resp BP Pulse Ox 97.9 F 89 18 102/62 98 03/15/17 12:04 03/15/17 12:04 03/15/17 12:04 03/15/17 12:04 03/15/17 12:04 General appearance: Present: cooperative, A&O X 2, mild distress, answers questions appropriately - Neck Neck exam general surgery: Present: supple, trachea midline. Absent: lymphadenopathy - Respiratory Respiratory exam: Present: CTAB. Absent: accessory muscle use, rales, rhonchi, wheezes - Cardiovascular Cardiovascular exam: Present: RRR, +S1, +S2. Absent: diastolic murmur, gallop, rubs, systolic murmur - GI/Abdominal GI/Abdominal exam: Present: normal bowel sounds, soft, no peritoneal signs. Absent: distended, tenderness - Extremities Exam Extremities exam: Present: tenderness (Right hip region), warm, radial pulses palpable and symmetrical. Absent: calf tenderness, cyanotic, pedal edema - Neurological Exam Neurological exam: Present: alert, no focal deficits. Absent: facial droop, speech deficit Internal Medicine: Result - Labs CBC & Chem 7: 03/15/17 08:08 03/14/17 04:39 Labs: Short CBC 03/15/17 Range/Units 08:08 WBC 14.9 H (4.3-11.1) K/mcL Hgb 8.7 L D (11.5-15.4) g/dL Hct 27.4 L (35.3-44.9) % Plt Count 232 (140-400) K/mcL Neutrophils # 12.4 H (1.6-8.9) K/mcL - VTE Documentation of Mechanical Device: Venous foot pump, device Consult Discharge Plan - Plan Referrals: Bonita Nguyen, PROFESSOR OF PHYSICAL EDUCATION [Primary Care Provider] -
--- NOTE | 2017-03-15 18:48 | Orthopedics Progress Note ---
Date of Encounter: 03/15/17 Time of Encounter: 18:46 Subjective Principal diagnosis: Right hip fracture Interval history: Patient is postop day #1 from IM nailing of a right hip fracture. She is sleeping soundly. She is doing fairly well overall per her daughter. Vital signs are stable. She is afebrile. Hip incision dressings are clean and dry. Neurovascular exam is intact. There is some leg swelling is anticipated. Hemoglobin is 10.8. Platelet count normal. impression: POD #1 IM nailing right hip Recommendation: Ambulate with weightbearing as tolerated. No limitations in regards to the right hip. Recheck labs in a.m. Orthopedic status is stable. 03/15/2017. Patient is postop day #2 IM nailing right hip fracture. Patient appears somewhat confused. She is apparently is doing fairly well per the family. Vital signs are stable. She is afebrile. Incision is clean and dry without drainage. Hemoglobin is 8.7. Platelet count is normal. Impression: POD #2 IM nailing right hip Recommendations: Continue with weightbearing as tolerated. Orthopedic status stable for discharge to sniff whenever arrangements can be made. She can shower with intact dressing. We will need see her back in the office in roughly 2-3 weeks' time after discharge. Objective Vital signs: Vital Signs Temp Pulse Resp BP Pulse Ox 03/15/17 15:35 98.3 F 86 16 103/59 96 03/15/17 12:04 97.9 F 89 18 102/62 98 03/15/17 10:58 16 96 03/15/17 07:13 98.1 F 85 18 104/57 97 03/15/17 04:38 98.1 F 90 18 98/56 96 03/15/17 00:12 98.5 F 91 18 95/57 94 03/14/17 20:44 19 94 03/14/17 19:52 99.1 F 104 20 93/52 93 Intake and Output 03/15/17 03/15/17 03/15/17 07:59 15:59 23:59 Intake Total 200 / 200 400 / 400 Output Total 500 / 500 0 / 0 Balance -300 / -300 400 / 400 Intake: Oral 200 / 200 400 / 400 Output: Urine 500 / 500 0 / 0 Other: Meal Lunch Percent of Meal Consumed 10% Weight 48.8 kg Patient Weight 03/15/17 23:59 Weight 48.8 kg - Labs CBC & BMP: 03/15/17 08:08 03/14/17 04:39 Labs: Abnormal lab results WBC 14.9 K/mcL (4.3-11.1) H 03/15/17 08:08 RBC 2.89 M/mcL (3.82-4.97) L 03/15/17 08:08 Hgb 8.7 g/dL (11.5-15.4) L D 03/15/17 08:08 Hct 27.4 % (35.3-44.9) L 03/15/17 08:08 Neutrophils # 12.4 K/mcL (1.6-8.9) H 03/15/17 08:08 Creatinine 0.55 mg/dL (0.57-1.11) L 03/14/17 04:39 Glucose 133 mg/dL (70-99) H 03/14/17 04:39 Calcium 7.6 mg/dL (8.6-10.8) L 03/14/17 04:39 TSH 0.300 mcIU/mL (0.350-4.840) L 03/15/17 04:03 Digoxin 0.4 ng/mL (0.8-2.0) L 03/15/17 04:03 - VTE Documentation of Mechanical Device: Venous foot pump, device Consult Discharge Plan - Plan Referrals: Bonita Nguyen, CONSERVATION OR HERITAGE ARCHITECT [Primary Care Provider] -
[2017-03-16 04:21] LABS: Hematocrit 25.5 % (35.3-44.9); Hemoglobin 8.1 g/dL (11.5-15.4)
[2017-03-16] MEDS: *HR* Enoxaparin 40 MG/0.4 ML SYRINGE SQ SCH (06:05)
[2017-03-16] MEDS: Tiotropium 18 MCG inhalation IH SCH (07:36)
[2017-03-16] MEDS: Budesonide/Formoterol 160/4.5 MDI IH SCH ×2 (07:37→21:43)
[2017-03-16] MEDS: Rivastigmine Patch 4.6 MG PATCH.TD24 TD SCH (08:12)
[2017-03-16] MEDS: *HR* Digoxin 0.125 MG TABLET PO SCH (08:12)
[2017-03-16] MEDS: Metoprolol XL (24 HR) Succ 25 MG TAB.ER.24H PO SCH (08:18)
--- NOTE | 2017-03-16 12:00 | Internal Med Progress Note ---
Date of Encounter: 03/16/17 Time of Encounter: 12:06 - Assessment and plan (1) Intertrochanteric fracture of right hip Current Visit: Yes Status: Acute Assessment and plan: Status post IM nailing of right hip on 03/13/[address] Sears. PT recommend placement to skilled rehabilitation. Continue supportive care. Pain control. Moderate risk for complications. hospitality workers consulted to make arrangements for placement. Qualifiers: Encounter type: initial encounter Fracture type: closed Fracture alignment: displaced Qualified Code(s): S72.141A - Displaced intertrochanteric fracture of right femur, initial encounter for closed fracture (2) Acute blood loss as cause of postoperative anemia Current Visit: Yes Status: Acute Assessment and plan: Hgb 14 03/04/2017 and down to 8.1 on 03/16/17. Suspect multifactorial with surgical loss and delusional component however she is dropped 6 gm in less than 2 weeks. Stop Lovenox, check occult stool. Monitor H&H. Transfuse PRBC if less than 8. (3) Leukocytosis Current Visit: Yes Status: Acute Assessment and plan: Present on admission. Likely reactive due to fracture and surgery. No signs of infection at this time. No indication for antibiotics. Trending down. Qualifiers: Leukocytosis type: leukemoid reaction Qualified Code(s): D72.823 - Leukemoid reaction (4) Subclinical hyperthyroidism Current Visit: Yes Status: Acute Assessment and plan: TSH 0.3, Free T 4 normal. Recommend repeat thyroid studies in 6-8 weeks (5) Atrial fibrillation with RVR Current Visit: Yes Status: Chronic Assessment and plan: Rate controlled. No anticoagulation with worsening anemia (6) Abdominal aortic aneurysm Current Visit: Yes Status: Chronic Assessment and plan: Follow-up outpatient with vascular surgery and cardiology. No acute issues. Blood pressure has been low since yesterday so beta bandar has been held. May resume once blood pressure improves. Qualifiers: Presence of rupture: without rupture Qualified Code(s): I71.4 - Abdominal aortic aneurysm, without rupture (7) Alzheimer's dementia Current Visit: Yes Status: Chronic Assessment and plan: No signs of delirium. Mentation at baseline. Continue Exelon Qualifiers: Alzheimer's disease onset: unspecified onset Dementia behavioral disturbance: without behavioral disturbance Qualified Code(s): G30.9 - Alzheimer's disease, unspecified; F02.80 - Dementia in other diseases classified elsewhere without behavioral disturbance; F02.80 - Dementia in other diseases classified elsewhere without behavioral disturbance; F02.80 - Dementia in other diseases classified elsewhere without behavioral disturbance (8) COPD (chronic obstructive pulmonary disease) Current Visit: Yes Status: Chronic Assessment and plan: Not in acute exacerbation. Qualifiers: COPD type: emphysema Emphysema type: other Qualified Code(s): J43.8 - Other emphysema (9) DVT prophylaxis Current Visit: Yes Status: Acute Assessment and plan: SCDs - Subjective Interval history: Seen and examined at bedside. Patient is new to me, information obtained from chart review and patient report. Patient is alert to self only so information is limited. Daughter at bedside and provides minutes information. Daughter tells me they are waiting on placement to SNF. May daughter aware of drop in hemoglobin and she is agreeable to stay overnight for further monitoring of Hgb possible need for PRBC. He should not alert to self only, unable to provide details her history. Appears pleasantly confused. Mentation at baseline per daughter. - Constitutional Vitals: Temp Pulse Resp BP Pulse Ox 98.1 F 84 18 100/69 100 03/16/17 10:51 03/16/17 10:51 03/16/17 10:51 03/16/17 10:51 03/16/17 10:51 General appearance: Present: cooperative, A&O X 2, answers questions appropriately - Head Head exam: Present: atraumatic, normocephalic - Eye Eye exam: Present: PERRL, conjuntiva pink, sclera anicteric Pupils: Present: PERRL - Neck Neck exam general surgery: Present: supple, trachea midline. Absent: lymphadenopathy - Respiratory Respiratory exam: Present: CTAB. Absent: accessory muscle use, rales, rhonchi, wheezes - Cardiovascular Cardiovascular exam: Present: RRR, +S1, +S2. Absent: diastolic murmur, gallop, rubs, systolic murmur - GI/Abdominal GI/Abdominal exam: Present: normal bowel sounds, soft, no peritoneal signs. Absent: distended, tenderness - Extremities Exam Extremities exam: Present: warm, radial pulses palpable and symmetrical. Absent : calf tenderness, cyanotic, pedal edema - Neurological Exam Neurological exam: Present: CN II-XII intact, oriented X3, no focal deficits. Absent: pronater drift, facial droop, speech deficit - Skin Skin exam: Present: dry, intact Internal Medicine: Result - Labs CBC & Chem 7: 03/16/17 03:03 03/14/17 04:39 Labs: Short CBC 03/16/17 Range/Units 03:03 Hgb 8.1 L (11.5-15.4) g/dL Hct 25.5 L (35.3-44.9) % - VTE Documentation of Mechanical Device: Venous foot pump, device Consult Discharge Plan - Plan Referrals: Bonita Nguyen, ARTS ADMINISTRATOR OR MANAGER [Primary Care Provider] -
--- NOTE | 2017-03-16 12:46 | Orthopedics Progress Note ---
Date of Encounter: 03/16/17 Time of Encounter: 12:46 Subjective Principal diagnosis: Right hip fracture Interval history: Patient is postop day #1 from IM nailing of a right hip fracture. She is sleeping soundly. She is doing fairly well overall per her daughter. Vital signs are stable. She is afebrile. Hip incision dressings are clean and dry. Neurovascular exam is intact. There is some leg swelling is anticipated. Hemoglobin is 10.8. Platelet count normal. impression: POD #1 IM nailing right hip Recommendation: Ambulate with weightbearing as tolerated. No limitations in regards to the right hip. Recheck labs in a.m. Orthopedic status is stable. 03/15/2017. Patient is postop day #2 IM nailing right hip fracture. Patient appears somewhat confused. She is apparently is doing fairly well per the family. Vital signs are stable. She is afebrile. Incision is clean and dry without drainage. Hemoglobin is 8.7. Platelet count is normal. Impression: POD #2 IM nailing right hip Recommendations: Continue with weightbearing as tolerated. Orthopedic status stable for discharge to sniff whenever arrangements can be made. She can shower with intact dressing. We will need see her back in the office in roughly 2-3 weeks' time after discharge. 03/16/2017. Patient is postop day #3 IM nailing right intertrochanteric right hip. Patient appears pleasantly confused. She is denying any hip pain. Vital signs are stable. She is afebrile. Hip dressings remain clean and dry. Neurovascular exam remained stable. Hemoglobin has dropped to 8.1. She is asymptomatic at this level. Impression: POD #3 IM nailing right hip Recommendations: As noted previously continue with weightbearing as tolerated. No incision care is required his ulcers and intact dressing. She can shower the intact dressing. Follow-up with me after discharge in about 2 or 3 weeks. I discussed with the family that I will be leaving town tomorrow and if any orthopedic care is required on urgent basis there will be an on-call physician. Objective Vital signs: Vital Signs Temp Pulse Resp BP Pulse Ox 03/16/17 10:51 98.1 F 84 18 100/69 100 03/16/17 08:10 92 105/58 03/16/17 07:37 16 93 03/16/17 06:20 98.0 F 78 16 87/52 100 03/16/17 05:34 97.6 F 82 14 102/59 94 03/15/17 23:59 98.4 F 87 14 93/52 97 03/15/17 22:10 16 98 03/15/17 19:57 98.2 F 95 16 96/59 93 03/15/17 15:35 98.3 F 86 16 103/59 96 Intake and Output 03/15/17 03/16/17 03/16/17 23:59 07:59 15:59 Intake Total 240 / 240 Output Total 0 / 0 350 / 350 Balance 240 / 240 -350 / -350 Intake: Oral 240 / 240 Output: Urine 0 / 0 350 / 350 Other: Meal Dinner Percent of Meal Consumed 100% # Voids 1 - Labs CBC & BMP: 03/16/17 03:03 03/14/17 04:39 Labs: Abnormal lab results WBC 14.9 K/mcL (4.3-11.1) H 03/15/17 08:08 RBC 2.89 M/mcL (3.82-4.97) L 03/15/17 08:08 Hgb 8.1 g/dL (11.5-15.4) L 03/16/17 03:03 Hct 25.5 % (35.3-44.9) L 03/16/17 03:03 Neutrophils # 12.4 K/mcL (1.6-8.9) H 03/15/17 08:08 Creatinine 0.55 mg/dL (0.57-1.11) L 03/14/17 04:39 Glucose 133 mg/dL (70-99) H 03/14/17 04:39 Calcium 7.6 mg/dL (8.6-10.8) L 03/14/17 04:39 TSH 0.300 mcIU/mL (0.350-4.840) L 03/15/17 04:03 Digoxin 0.4 ng/mL (0.8-2.0) L 03/15/17 04:03 - VTE Documentation of Mechanical Device: Venous foot pump, device Consult Discharge Plan - Plan Referrals: Bonita Nguyen, SHIFT COORDINATOR [Primary Care Provider] -
[2017-03-17 04:19] LABS: Hematocrit 27.3 % (35.3-44.9); Hemoglobin 8.5 g/dL (11.5-15.4); Mean Corpuscular HGB Conc 31.1 g/dL (31.6-35.5); Mean Corpuscular Hemoglobin 29.9 pg (28.0-33.3); Mean Corpuscular Volume 96.1 fL (83.0-100.0); Mean Platelet Volume 10.9 fL (9.4-12.4); Platelet Count 289 K/mcL (140-400); Red Blood Count 2.84 M/mcL (3.82-4.97); Red Cell Distribution Width 13.6 % (11.5-14.5)
[2017-03-17 04:37] LABS: BUN/Creatinine Ratio 23 (6-26); Blood Urea Nitrogen 11 mg/dL (7-20); Calcium 7.5 mg/dL (8.6-10.8); Carbon Dioxide 28 mEq/L (19-29); Chloride 103 mEq/L (98-109); Glucose 106 mg/dL (70-99); Osmolality,Calculated 284 (280-300); Potassium 3.6 mEq/L (3.5-4.5); Sodium 137 mEq/L (136-145); eGFR For African Americans > 60 (> 60); eGFR For Non-African Americans > 60 (> 60)
--- NOTE | 2017-03-17 07:48 | Orthopedics Progress Note ---
Date of Encounter: 03/17/17 Time of Encounter: 07:46 Subjective Principal diagnosis: Right hip fracture Interval history: Patient is postop day #1 from IM nailing of a right hip fracture. She is sleeping soundly. She is doing fairly well overall per her daughter. Vital signs are stable. She is afebrile. Hip incision dressings are clean and dry. Neurovascular exam is intact. There is some leg swelling is anticipated. Hemoglobin is 10.8. Platelet count normal. impression: POD #1 IM nailing right hip Recommendation: Ambulate with weightbearing as tolerated. No limitations in regards to the right hip. Recheck labs in a.m. Orthopedic status is stable. 03/15/2017. Patient is postop day #2 IM nailing right hip fracture. Patient appears somewhat confused. She is apparently is doing fairly well per the family. Vital signs are stable. She is afebrile. Incision is clean and dry without drainage. Hemoglobin is 8.7. Platelet count is normal. Impression: POD #2 IM nailing right hip Recommendations: Continue with weightbearing as tolerated. Orthopedic status stable for discharge to sniff whenever arrangements can be made. She can shower with intact dressing. We will need see her back in the office in roughly 2-3 weeks' time after discharge. 03/16/2017. Patient is postop day #3 IM nailing right intertrochanteric right hip. Patient appears pleasantly confused. She is denying any hip pain. Vital signs are stable. She is afebrile. Hip dressings remain clean and dry. Neurovascular exam remained stable. Hemoglobin has dropped to 8.1. She is asymptomatic at this level. Impression: POD #3 IM nailing right hip Recommendations: As noted previously continue with weightbearing as tolerated. No incision care is required his ulcers and intact dressing. She can shower the intact dressing. Follow-up with me after discharge in about 2 or 3 weeks. I discussed with the family that I will be leaving town tomorrow and if any orthopedic care is required on urgent basis there will be an on-call physician. 03/17/2017. Patient postop day #4 IM nailing right hip fracture. Patient pleasant. Denies pain. Vital signs are stable. Patient is afebrile. Dressings are clean and dry. Hemoglobin is 8.5, platelet count normal. Impression: POD #4 IM nailing right hip Recommendation: Continue weightbearing as tolerated in the right lower extremity. Patient is stable from an orthopedics point review for discharge at any time. No wound care is required his lungs are dressings clean dry and intact. She can shower with the intact dressing. We will follow up with me in about 2-3 weeks. I will be unavailable after today, will be available if needed on urgent basis. Objective Vital signs: Vital Signs Temp Pulse Resp BP Pulse Ox 03/17/17 07:13 97.6 F 76 16 99/54 97 03/17/17 04:50 97.6 F 75 19 95/61 98 03/17/17 00:23 98.0 F 82 16 93/55 97 03/16/17 21:43 16 100 03/16/17 20:43 98 15 98 03/16/17 19:00 98.3 F 125 18 117/72 98 03/16/17 15:00 98.2 F 85 16 95/59 100 03/16/17 10:51 98.1 F 84 18 100/69 100 03/16/17 08:10 92 105/58 Intake and Output 03/16/17 03/16/17 03/17/17 15:59 23:59 07:59 Intake Total 100 / 100 100 / 100 Balance 100 / 100 100 / 100 Intake: Oral 100 / 100 100 / 100 Other: Meal Dinner Percent of Meal Consumed 50% - Labs CBC & BMP: 03/17/17 04:05 03/17/17 04:05 Labs: Abnormal lab results RBC 2.84 M/mcL (3.82-4.97) L 03/17/17 04:05 Hgb 8.5 g/dL (11.5-15.4) L 03/17/17 04:05 Hct 27.3 % (35.3-44.9) L 03/17/17 04:05 MCHC 31.1 g/dL (31.6-35.5) L 03/17/17 04:05 Neutrophils # 12.4 K/mcL (1.6-8.9) H 03/15/17 08:08 Creatinine 0.48 mg/dL (0.57-1.11) L 03/17/17 04:05 Glucose 106 mg/dL (70-99) H 03/17/17 04:05 Calcium 7.5 mg/dL (8.6-10.8) L 03/17/17 04:05 TSH 0.300 mcIU/mL (0.350-4.840) L 03/15/17 04:03 Digoxin 0.4 ng/mL (0.8-2.0) L 03/15/17 04:03 - VTE Documentation of Mechanical Device: Venous foot pump, device Consult Discharge Plan - Plan Referrals: Bonita Nguyen, CHICKEN CLEANER [Primary Care Provider] -
[2017-03-17] MEDS: *HR* Digoxin 0.125 MG TABLET PO SCH (09:19)
[2017-03-17] MEDS: Rivastigmine Patch 4.6 MG PATCH.TD24 TD SCH (09:19)
--- NOTE | 2017-03-17 10:10 | Cardiology Consult Note ---
<Michael Inman - Last Filed: 03/17/17 11:59> Date of Encounter: 03/17/17 Time of Encounter: 10:06 Assessment and Plan (1) Atrial fibrillation with RVR Current Visit: Yes Status: Chronic Recent admission, 03/04/17, sepsis secondary to PNA, newly documented afib-rvr, has been on Digoxin .125mg po daily Not currently rate controlled, not anticoagulated Currently sinus rhythm in the mid 70s Systolic bp's averaging high 90s Former smoker quit 2 year ago, 1-2ppd x over 50 years. Risk factor for ectopy increased. P: Recommend increase fluids, hypotension in setting of preserved LVEF, consider transfusion 1U (H&H is greater than 7.0, however steep drop s/p procedure) P: Will discontinue digoxin, initiating low-dose Diltiazem 30mg q8 (2) Hypotension Current Visit: Yes Status: Acute As above Qualifiers: Hypotension type: hypotension due to drug Qualified Code(s): I95.2 - Hypotension due to drugs (3) Acute blood loss as cause of postoperative anemia Current Visit: Yes Status: Acute As above, hypovolemia likely contributing to intermittent ectopy. (4) Intertrochanteric fracture of right hip Current Visit: Yes Status: Acute S/p OR 03/13/17 Qualifiers: Encounter type: initial encounter Fracture type: closed Fracture alignment: displaced Qualified Code(s): S72.141A - Displaced intertrochanteric fracture of right femur, initial encounter for closed fracture (5) Abdominal aortic aneurysm Current Visit: Yes Status: Chronic Following Vascular Surgery in [place], Dr. Palumbo AAA 5.0cm according to daughter Monitoring at this time, maintain BP control Endovascular repair not planned due to patient comorbidities; <5.5cm, AAA evolution not unspecified Qualifiers: Presence of rupture: without rupture Qualified Code(s): I71.4 - Abdominal aortic aneurysm, without rupture (6) COPD (chronic obstructive pulmonary disease) Current Visit: Yes Status: Chronic quit 2 years ago, 1-2ppd hx started as teenager Has 2L home O2 at night. Stable with nasal cannula 3L, RT/duonebs. Qualifiers: COPD type: emphysema Emphysema type: other Qualified Code(s): J43.8 - Other emphysema (7) Alzheimer's dementia Current Visit: Yes Status: Chronic limited history from patient fall risk PT/OT, SNF as per primary team Qualifiers: Alzheimer's disease onset: unspecified onset Dementia behavioral disturbance: without behavioral disturbance Qualified Code(s): G30.9 - Alzheimer's disease, unspecified; F02.80 - Dementia in other diseases classified elsewhere without behavioral disturbance; F02.80 - Dementia in other diseases classified elsewhere without behavioral disturbance; F02.80 - Dementia in other diseases classified elsewhere without behavioral disturbance (8) DVT prophylaxis Current Visit: Yes Status: Acute on intermittent pneumatic compression (pedal-compressors) Discussion w patient/family: The assessment and plan as outlined above was discussed with the patient and/or family members who expressed understanding and agreement. All questions were answered. Thank you for involving us in the care of your patient. Please call with any questions. History of Present Illness Consult date: 03/17/17 Requesting physician: Corrie Carvalho Consult reason: afib-RVR History of present illness: Ms. Cortes is a 71 year old female, history is obtained from daughter and chart review, PMH of afib with episodes of RVR first documented on patient's admission for sepsis secondary to pneumonia 03/04/17, not anticoagulated-fall risk with dementia, COPD on 2L home O2 qHS, hyperlipidemia, and AAA approx 5cm according to daughter. No admissions in past several years prior to the two this month. Patient came in 03/13 with R leg pain after fall at home, denies leg instability /pain, syncope or dizziness prior to fall. Taken immediately to the ER, found to have R-sided comminuted intertrochanteric fracture, intramedullary nailing right hip same day. Pt shown to be in afib with RVR initially rate controlled on Toprol 12.5mg po, discontinued due to hypotension with preserved LVER, currently sinus rhythm with occasional PVCs. Pt today has no complaints, tolerating post-op pain management, able to sit up in bed, limited direct conversation, daughter at bedside. Denies palpitations, chest pain, shortness of breath. Past Med Surg Social Fam HX - Past Medical History Medical history: arthritis, atrial fibrillation, COPD, dementia, GERD, hyperlipidemia, other Psychiatric history: no psych history - Past Surgical History Surgical History: cholecystectomy, hysterectomy - Social History Smoking Status: Former smoker Smokeless Tobacco Status: No Alcohol use: none Drug use: none - Family History Mother Name: ALYCIA MOHAMUD Living Status: Hx Family Endocrine Disorder: Yes (DM) Medications and Allergies Albuterol Sulfate [Proair Hfa] 1 - 2 puff IH Q6H PRN 03/04/17 [History] Aspirin [Lo-Dose Aspirin EC] 81 mg PO DAILY 03/04/17 [History] Montelukast [Singulair] 10 mg PO DAILY 03/04/17 [History] Pantoprazole Sodium [Protonix] 40 mg PO DAILY 03/04/17 [History] Potassium Chloride [K-Tab ER] 10 meq PO DAILY 03/04/17 [History] Rivastigmine 1 patch TD QDPC 03/04/17 [History] Budesonide/Formoterol 160/4.5 [Symbicort 160/4.5] 2 puff IH BID 03/05/17 [ History] Tiotropium [Spiriva] 18 mcg IH DAILY 03/05/17 [History] Atorvastatin [Lipitor] 40 mg PO HS #30 tablet 03/08/17 [Rx] Digoxin [Lanoxin] 0.125 mg PO DAILY #30 tablet 03/08/17 [Rx] Docusate [Colace] 100 mg PO BID PRN #20 capsule 03/08/17 [Rx] Diltiazem CD (24hr) [Cardizem CD] 120 mg PO DAILY 03/13/17 [History] 3 Allergy/AdvReac Type Severity Reaction Status Date / Time No Known Allergies Allergy Verified 03/13/17 00:31 All Systems Review: A 10-system review of systems was performed and is negative for pertinent findings except as documented above in the HPI. Physical Examination Vital Signs, Last 4 Hours Temp Pulse Resp BP Pulse Ox 03/17/17 07:13 97.6 F 76 16 99/54 97 General: No Apparent Distress, Other (pt non-conversant, follows instruction, non-hard of hearing ) HEENT: Atraumatic Neck: Other (no JVD, no carotid bruit on auscultation) Cardiac: Other (currently nml S1 S2, no murmur, no clicks, ) Neuro: No focal deficits noted Results 03/17/17 04:05 03/17/17 04:05 Lab Results 03/17/17 03/17/17 04:05 04:05 WBC 10.3 Hgb 8.5 L Hct 27.3 L Plt Count 289 Sodium 137 Potassium 3.6 Chloride 103 Carbon Dioxide 28 BUN 11 Creatinine 0.48 L Glucose 106 H Calcium 7.5 L Consult Discharge Plan - Plan Referrals: Bonita Nguyen, SENIOR FINANCIAL REPORTING ANALYST [Primary Care Provider] - <Tyrone Lugo - Last Filed: 03/17/17 17:20> Date of Encounter: 03/17/17 - Attending Attestation I examined this patient and my medical decision-making was reviewed with the Resident Physician. I agree with the documented findings, disposition and treatment plan as described except to the extent set forth below. 1. A fib with RVR - paroxysmal, ventricular rate not fully controlled on dig alone, back in NSR at 70 bpm, well preserved EF, would change dig to diltiazem for rate control of ventricular response, start 30 mg q 8, titrate as needed, will follow with you over next 24 - 48 hours to monitor clinical response. Pt is not a candidate for systemic anticoagulation due to fall risk. 2. Acute blood loss anemia, Hb drop 6 + grams over last two weeks, continue to monitor, consider transfusion if drops below 8 3. Hypotension - improved with fluid rehydration, discontinued beta blockade. 4. PVD - AAA > 5.0 cm 5. Dementia - difficult to ellicit symptoms, pt is not a reliable historian, is in NAD at present. Assessment and Plan Discussion w patient/family: The assessment and plan as outlined above was discussed with the patient and/or family members who expressed understanding and agreement. All questions were answered. Thank you for involving us in the care of your patient. Please call with any questions. History of Present Illness History of present illness: Ms. Cortes is a 71 year old female All Systems Review: A 10-system review of systems was performed and is negative for pertinent findings except as documented above in the HPI. Physical Examination Vital Signs, Last 4 Hours Temp Pulse Resp BP Pulse Ox 03/17/17 16:07 97.8 F 72 16 102/54 94 Results 03/17/17 04:05 03/17/17 04:05 Lab Results 03/17/17 03/17/17 04:05 04:05 WBC 10.3 Hgb 8.5 L Hct 27.3 L Plt Count 289 Sodium 137 Potassium 3.6 Chloride 103 Carbon Dioxide 28 BUN 11 Creatinine 0.48 L Glucose 106 H Calcium 7.5 L
[2017-03-17] MEDS: Budesonide/Formoterol 160/4.5 MDI IH SCH ×2 (12:04→20:23)
[2017-03-17] MEDS: Tiotropium 18 MCG inhalation IH SCH (12:05)
--- NOTE | 2017-03-17 14:12 | Internal Med Progress Note ---
Date of Encounter: 03/17/17 Time of Encounter: 14:07 - Assessment and plan (1) Intertrochanteric fracture of right hip Current Visit: Yes Status: Acute Assessment and plan: Status post IM nailing of right hip on 03/13/[address] Sears. PT recommend placement to skilled rehabilitation. Continue supportive care. Pain control. Moderate risk for complications. Awaiting placement Qualifiers: Encounter type: initial encounter Fracture type: closed Fracture alignment: displaced Qualified Code(s): S72.141A - Displaced intertrochanteric fracture of right femur, initial encounter for closed fracture (2) Acute blood loss as cause of postoperative anemia Current Visit: Yes Status: Acute Assessment and plan: Hgb 14 03/04/2017 and down to 8.1 on 03/16/17. Suspect multifactorial with surgical loss and delusional component however she is dropped 6 gm in less than 2 weeks. Stop Lovenox, check occult stool. Monitor H&H. Transfuse PRBC if less than 8. Hgb 8.5 on 03/17 (3) Leukocytosis Current Visit: Yes Status: Acute Assessment and plan: Present on admission. Likely reactive due to fracture and surgery. No signs of infection at this time. Trending down. Qualifiers: Leukocytosis type: leukemoid reaction Qualified Code(s): D72.823 - Leukemoid reaction (4) Subclinical hyperthyroidism Current Visit: Yes Status: Acute Assessment and plan: TSH 0.3, Free T 4 normal. Recommend repeat thyroid studies in 6-8 weeks (5) Atrial fibrillation with RVR Current Visit: Yes Status: Chronic Assessment and plan: hx transient A. fib with RVR. Evaluated by cardiology during last admission who recommended digoxin as BP borderline/soft. A coagulation not recommended due to dementia and frequent falls. With recurrent episode A. fib on 03/16; converted to sinus rhythm with low dose BB. Remains rate controlled. (6) Abdominal aortic aneurysm Current Visit: Yes Status: Chronic Assessment and plan: Follow-up outpatient with vascular surgery and cardiology. No acute issues. Blood pressure has been low since yesterday so beta bandar has been held. May resume once blood pressure improves. Qualifiers: Presence of rupture: without rupture Qualified Code(s): I71.4 - Abdominal aortic aneurysm, without rupture (7) Alzheimer's dementia Current Visit: Yes Status: Chronic Assessment and plan: No signs of delirium. Mentation at baseline. Continue Exelon Qualifiers: Alzheimer's disease onset: unspecified onset Dementia behavioral disturbance: without behavioral disturbance Qualified Code(s): G30.9 - Alzheimer's disease, unspecified; F02.80 - Dementia in other diseases classified elsewhere without behavioral disturbance; F02.80 - Dementia in other diseases classified elsewhere without behavioral disturbance; F02.80 - Dementia in other diseases classified elsewhere without behavioral disturbance (8) COPD (chronic obstructive pulmonary disease) Current Visit: Yes Status: Chronic Assessment and plan: Not in acute exacerbation. Qualifiers: COPD type: emphysema Emphysema type: other Qualified Code(s): J43.8 - Other emphysema (9) DVT prophylaxis Current Visit: Yes Status: Acute Assessment and plan: SCDs (10) Community acquired pneumonia Current Visit: No Status: Acute Assessment and plan: Recently admitted with severe sepsis secondary to pneumonia. With mild dyspnea on 03/17 exam. Repeat chest x-ray with mild right infiltrate similar to 03/13 exam and new pleural effusion. Had episode of A. fib with RVR last night and with mild dyspnea we will treat with Levaquin. Qualifiers: Laterality: right Lung location: lower lobe of lung Qualified Code(s): J18.1 - Lobar pneumonia, unspecified organism - Subjective Interval history: Seen and examined at bedside. Up in chair at bedside. She is pleasantly confused, alert to self only. She has no complaints. Daughter at bedside and updated. Waiting on placement. - Constitutional Vitals: Temp Pulse Resp BP Pulse Ox 98.1 F 86 16 97/57 97 03/17/17 11:11 03/17/17 11:11 03/17/17 12:07 03/17/17 12:30 03/17/17 12:07 General appearance: Present: cooperative, A&O X 2, answers questions appropriately - Head Head exam: Present: atraumatic, normocephalic - Eye Eye exam: Present: PERRL, conjuntiva pink, sclera anicteric Pupils: Present: PERRL - Neck Neck exam general surgery: Present: supple, trachea midline. Absent: lymphadenopathy - Respiratory Respiratory exam: Present: CTAB. Absent: accessory muscle use, rales, rhonchi, wheezes - Cardiovascular Cardiovascular exam: Present: RRR, +S1, +S2. Absent: diastolic murmur, gallop, rubs, systolic murmur - GI/Abdominal GI/Abdominal exam: Present: normal bowel sounds, soft, no peritoneal signs. Absent: distended, tenderness - Extremities Exam Extremities exam: Present: pedal edema, warm, radial pulses palpable and symmetrical. Absent: calf tenderness, cyanotic Additional comments: Right hip dressing dry clean and intact - Neurological Exam Neurological exam: Present: CN II-XII intact, oriented X3, no focal deficits. Absent: pronater drift, facial droop, speech deficit - Skin Skin exam: Present: dry, intact Internal Medicine: Result - Labs CBC & Chem 7: 03/17/17 04:05 03/17/17 04:05 Labs: Short CBC 03/17/17 Range/Units 04:05 WBC 10.3 (4.3-11.1) K/mcL Hgb 8.5 L (11.5-15.4) g/dL Hct 27.3 L (35.3-44.9) % Plt Count 289 (140-400) K/mcL BMP 03/17/17 04:05 Sodium 137 Potassium 3.6 Chloride 103 Carbon Dioxide 28 BUN 11 Creatinine 0.48 L Glucose 106 H Calcium 7.5 L - Impressions Impressions Chest X-Ray 03/17/17 09:51 IMPRESSION: Mild right basilar atelectasis or infiltrate, similar to 03/13/2017 exam. However, there is a new small right pleural effusion. D/ / 03/17/2017 10:56:18 Diogenes Ackerman MD / nanci Interpreting Provider: Diogenes Ackerman MD - VTE Documentation of Mechanical Device: Venous foot pump, device Consult Discharge Plan - Plan Referrals: Bonita Nguyen, DEICER INSPECTOR PNEUMATIC [Primary Care Provider] -
[2017-03-17] MEDS ORDERED: Levofloxacin 750 MG/150 ML 750 MG/150 ML BAG IVPB SCH (15:00)
[2017-03-17 17:06] LABS: Adenovirus Not Detected (Not Detect); Coronavirus 229E Not Detected (Not Detect); Coronavirus HKU1 Not Detected (Not Detect); Coronavirus NL63 Not Detected (Not Detect); Coronavirus OC43 Not Detected (Not Detect); Human Metapneumovirus Not Detected (Not Detect); Human Rhinovirus/Enterovirus Not Detected (Not Detect); Influenza A Subtype 2009 H1 Not Detected (Not Detect); Influenza A Untypeable Not Detected (Not Detect); Influenza B Not Detected (Not Detect); Parainfluenza Virus 1 Not Detected (Not Detect); Parainfluenza Virus 2 Not Detected (Not Detect); Parainfluenza Virus 3 Not Detected (Not Detect)
[2017-03-17 17:07] LABS: Bordetella Pertussis Not Detected (Not Detect); Chlamydophila pneumoniae Not Detected (Not Detect); Mycoplasma pneumoniae Not Detected (Not Detect); Parainfluenza Virus 4 Not Detected (Not Detect); Respiratory Syncytial Virus Not Detected (Not Detect)
--- NOTE | 2017-03-17 20:08 | Electrocardiograph Report ---
[address] [place], [place] [address] Test Date: 2017-03-16 Pat Name: Lakia Cortes Department: 114 Room: [facility] Gender: F Mail Processor: JOEL : 1945 Requested By: Corrie Carvalho Order Number: [id number] Reading MD: Collin Hagan MD Measurements Intervals Gunter Rate: 127 P: CT: 0 QRS: 36 QRSD: 76 T: 132 QT: 283 QTc: 358 Interpretive Statements ATRIAL FLUTTER/TACHYCARDIA WITH RAPID VENTRICULAR RESPONSE INDETERMINATE AXIS BASELINE ARTIFACT, REPEAT EKG Electronically Signed On 03-17-2017 20:06:45 EST by Collin Hagan MD
[2017-03-18] MEDS: Budesonide/Formoterol 160/4.5 MDI IH SCH ×2 (08:08→20:48)
[2017-03-18] MEDS: Tiotropium 18 MCG inhalation IH SCH (08:09)
[2017-03-18] MEDS: Levofloxacin 750 MG/150 ML 750 MG/150 ML BAG IVPB SCH (08:11)
[2017-03-18] MEDS: Rivastigmine Patch 4.6 MG PATCH.TD24 TD SCH (08:11)
[2017-03-18] MEDS ORDERED: cefTRIAXone 1,000 MG in Water for inj. (sterile) 10 ML IVP SCH (09:00)
--- NOTE | 2017-03-18 11:04 | Internal Med Progress Note ---
Date of Encounter: 03/18/17 Time of Encounter: 11:01 - Assessment and plan (1) Intertrochanteric fracture of right hip Current Visit: Yes Status: Acute Assessment and plan: Status post IM nailing of right hip on 03/13/[address] Sears. PT recommend placement to skilled rehabilitation. Continue supportive care. Pain control. Moderate risk for complications. Awaiting placement [facility] SNF/ECF likely on 03/19/17 Qualifiers: Encounter type: initial encounter Fracture type: closed Fracture alignment: displaced Qualified Code(s): S72.141A - Displaced intertrochanteric fracture of right femur, initial encounter for closed fracture (2) Acute blood loss as cause of postoperative anemia Current Visit: Yes Status: Acute Assessment and plan: Hgb 14 03/04/2017 and down to 8.1 on 03/16/17. Suspect multifactorial with surgical loss and dilutional component. Hgb stable in 8s. Monitor H&H, transfuse for Hgb less than 8. Occult stool pending (3) Streptococcus pneumoniae pneumonia Current Visit: Yes Status: Acute Assessment and plan: Recently admitted in severe sepsis secondary to pneumonia; treated with Levaquin at that time. Repeat CXR 03/17/17 with LLL infiltrate similar to exam. Urinary antigen positive for strep pneumonia. Change ATB to ceftriaxone, azithromycin since she was recently treated with Levaquin. Qualifiers: Laterality: right Lung location: lower lobe of lung Qualified Code(s): J13 - Pneumonia due to Streptococcus pneumoniae (4) Leukocytosis Current Visit: Yes Status: Acute Assessment and plan: Present on admission. Likely reactive due to fracture and surgery. No signs of infection at this time. Trending down. Qualifiers: Leukocytosis type: leukemoid reaction Qualified Code(s): D72.823 - Leukemoid reaction (5) Subclinical hyperthyroidism Current Visit: Yes Status: Acute Assessment and plan: TSH 0.3, Free T 4 normal. Recommend repeat thyroid studies in 6-8 weeks (6) Atrial fibrillation with RVR Current Visit: Yes Status: Chronic Assessment and plan: hx transient A. fib with RVR. Evaluated by cardiology during last admission who recommended digoxin as BP borderline/soft. A coagulation not recommended due to dementia and frequent falls. With recurrent episode A. fib on 03/16; converted to sinus rhythm with low dose BB. Remains rate controlled. (7) Abdominal aortic aneurysm Current Visit: Yes Status: Chronic Assessment and plan: Follow-up outpatient with vascular surgery and cardiology. No acute issues. Blood pressure has been low since yesterday so beta bandar has been held. May resume once blood pressure improves. Qualifiers: Presence of rupture: without rupture Qualified Code(s): I71.4 - Abdominal aortic aneurysm, without rupture (8) Alzheimer's dementia Current Visit: Yes Status: Chronic Assessment and plan: No signs of delirium. Mentation at baseline. Continue Exelon Qualifiers: Alzheimer's disease onset: unspecified onset Dementia behavioral disturbance: without behavioral disturbance Qualified Code(s): G30.9 - Alzheimer's disease, unspecified; F02.80 - Dementia in other diseases classified elsewhere without behavioral disturbance; F02.80 - Dementia in other diseases classified elsewhere without behavioral disturbance; F02.80 - Dementia in other diseases classified elsewhere without behavioral disturbance (9) COPD (chronic obstructive pulmonary disease) Current Visit: Yes Status: Chronic Assessment and plan: Not in acute exacerbation. Qualifiers: COPD type: emphysema Emphysema type: other Qualified Code(s): J43.8 - Other emphysema (10) DVT prophylaxis Current Visit: Yes Status: Acute Assessment and plan: SCDs - Subjective Interval history: Seen and examined at bedside. Sitting up in bed, no distress apparent. She is alert to self only, says she feels okay. She does not offer any other information. Denies chest pain, denies shortness of breath. Says she is coughing at times. No family at bedside. - Constitutional Vitals: Temp Pulse Resp BP Pulse Ox 98.4 F 86 17 105/57 100 03/18/17 07:55 03/18/17 07:55 03/18/17 08:10 03/18/17 07:55 03/18/17 08:10 General appearance: Present: cachectic, cooperative, A&O X 2, answers questions appropriately - Head Head exam: Present: atraumatic, normocephalic - Eye Eye exam: Present: PERRL, conjuntiva pink, sclera anicteric Pupils: Present: PERRL - Neck Neck exam general surgery: Present: supple, trachea midline. Absent: lymphadenopathy - Respiratory Respiratory exam: Present: CTAB. Absent: accessory muscle use, rales, rhonchi, wheezes - Cardiovascular Cardiovascular exam: Present: RRR, +S1, +S2. Absent: diastolic murmur, gallop, rubs, systolic murmur - GI/Abdominal GI/Abdominal exam: Present: normal bowel sounds, soft, no peritoneal signs. Absent: distended, tenderness - Extremities Exam Extremities exam: Present: warm, radial pulses palpable and symmetrical. Absent : calf tenderness, cyanotic, pedal edema - Neurological Exam Neurological exam: Present: CN II-XII intact, oriented X3, no focal deficits. Absent: pronater drift, facial droop, speech deficit - Skin Skin exam: Present: dry, intact Internal Medicine: Result - Labs CBC & Chem 7: 03/17/17 04:05 03/17/17 04:05 - Impressions Impressions Chest X-Ray 03/17/17 09:51 IMPRESSION: Mild right basilar atelectasis or infiltrate, similar to 03/13/2017 exam. However, there is a new small right pleural effusion. D/ / 03/17/2017 10:56:18 Diogenes Ackerman MD / nanci Interpreting Provider: Diogenes Ackerman MD - VTE Documentation of Mechanical Device: Venous foot pump, device Consult Discharge Plan - Plan Referrals: Bonita Nguyen, ELECTRICIAN LOCOMOTIVE [Primary Care Provider] -
--- NOTE | 2017-03-18 11:16 | Orthopedics Progress Note ---
Date of Encounter: 03/18/17 Time of Encounter: 11:16 Subjective Principal diagnosis: Right hip fracture Interval history: S: No new ortho complaints. Pain is controlled. Denies N/V, denies F/C/NS. O: AFVSS Dressing clean dry and intact No surrounding erythema Sensation intact distally Able to DF/PF foot,wiggles toes A/P: Postop day 5 status post R hip CMN Continue WBAT RLE Discharge planning, no further ortho intervention planned follow-up as scheduled with Dr Sears Objective Vital signs: Vital Signs Temp Pulse Resp BP BP BP BP 03/18/17 11:13 98.2 F 94 18 92/51 03/18/17 08:10 17 03/18/17 07:55 98.4 F 86 16 105/57 03/18/17 04:07 97.9 F 72 17 102/56 03/17/17 23:13 98.1 F 79 16 95/58 03/17/17 20:24 18 03/17/17 18:21 97.9 F 89 18 98/62 03/17/17 16:07 97.8 F 72 16 102/54 03/17/17 12:30 97/57 128/85 107/67 03/17/17 12:07 16 Pulse Ox 03/18/17 11:13 95 03/18/17 08:10 100 03/18/17 07:55 100 03/18/17 04:07 98 03/17/17 23:13 98 03/17/17 20:24 97 03/17/17 18:21 99 03/17/17 16:07 94 03/17/17 12:30 03/17/17 12:07 97 Intake and Output 03/17/17 03/18/17 03/18/17 23:59 07:59 15:59 Intake Total 590 / 590 500 / 500 200 / 200 Output Total 375 / 375 300 / 300 Balance 215 / 215 500 / 500 -100 / -100 Intake: IV Fluids 150 / 150 Levaquin Premix 750mg/150 mL 150 / 150 750 mg In 150 ml @ 100 mls/hr IVPB DAILY KIMBER Rx#:[id number] Oral 590 / 590 500 / 500 50 / 50 Output: Urine 375 / 375 300 / 300 Other: Meal Dinner Breakfast Percent of Meal Consumed 0% 10% # Voids 1 1 # Urine Diapers 1 - Labs CBC & BMP: 03/17/17 04:05 03/17/17 04:05 Labs: Abnormal lab results RBC 2.84 M/mcL (3.82-4.97) L 03/17/17 04:05 Hgb 8.5 g/dL (11.5-15.4) L 03/17/17 04:05 Hct 27.3 % (35.3-44.9) L 03/17/17 04:05 MCHC 31.1 g/dL (31.6-35.5) L 03/17/17 04:05 Neutrophils # 12.4 K/mcL (1.6-8.9) H 03/15/17 08:08 Creatinine 0.48 mg/dL (0.57-1.11) L 03/17/17 04:05 Glucose 106 mg/dL (70-99) H 03/17/17 04:05 Calcium 7.5 mg/dL (8.6-10.8) L 03/17/17 04:05 TSH 0.300 mcIU/mL (0.350-4.840) L 03/15/17 04:03 Digoxin 0.4 ng/mL (0.8-2.0) L 03/15/17 04:03 - VTE Documentation of Mechanical Device: Venous foot pump, device Consult Discharge Plan - Plan Referrals: Bonita Nguyen, NEONATAL NURSE PRACTITIONER [Primary Care Provider] -
--- NOTE | 2017-03-18 12:23 | Event Note ---
Date of Encounter: 03/18/17 Time of Encounter: 12:20 - Cardiology Event Note Patient with dementia. Patient alert to person only. No family at bedside. Tele shows Avg 77, SR, no events noted. Now on Cardizem 30mg PO every 8 hrs. SBP 90' s - 100's. Now off digoxin. Previously appears to have been on Cardizem CD 120mg PO daily per review of records. Recommend continue medical regimen, consider switching to long acting Cardizem CD 120mg PO daily if SBP will tolerate prior to DC. No further recs. H&H downward trend. Previously not deemed a good candidate for long-term anticoagulation. Discussed with Dr. Hagan. will s/o, re-consult PRN.
[2017-03-19 04:37] LABS: Hematocrit 27.2 % (35.3-44.9); Hemoglobin 8.6 g/dL (11.5-15.4); Mean Corpuscular HGB Conc 31.6 g/dL (31.6-35.5); Mean Corpuscular Volume 94.8 fL (83.0-100.0); Mean Platelet Volume 10.9 fL (9.4-12.4); Platelet Count 307 K/mcL (140-400); Red Blood Count 2.87 M/mcL (3.82-4.97); Red Cell Distribution Width 14.2 % (11.5-14.5)
[2017-03-19 04:54] LABS: Alanine Aminotransferase 11 Units/L (0-55); Albumin/Globulin Ratio 0.6 (1.1-2.2); Alkaline Phosphatase 69 Units/L (38-126); Aspartate Amino Transferase 18 Units/L (5-34); BUN/Creatinine Ratio 19 (6-26); Bilirubin,Total 1.1 mg/dL (0.2-1.2); Blood Urea Nitrogen 10 mg/dL (7-20); Carbon Dioxide 31 mEq/L (19-29); Chloride 103 mEq/L (98-109); Globulin 3.2 g/dL (2.4-3.5); Glucose 93 mg/dL (70-99); Osmolality,Calculated 285 (280-300); Potassium 3.5 mEq/L (3.5-4.5); Sodium 138 mEq/L (136-145); eGFR For African Americans > 60 (> 60); eGFR For Non-African Americans > 60 (> 60)
[2017-03-19 04:57] LABS: Albumin 1.8 g/dL (3.5-5.0)
[2017-03-19] MEDS: Budesonide/Formoterol 160/4.5 MDI IH SCH ×2 (07:51→19:59)
[2017-03-19] MEDS: Tiotropium 18 MCG inhalation IH SCH (07:51)
[2017-03-19] MEDS: Rivastigmine Patch 4.6 MG PATCH.TD24 TD SCH (09:34)
[2017-03-19] MEDS: Levofloxacin 750 MG/150 ML 750 MG/150 ML BAG IVPB SCH (09:34)
[2017-03-19] MEDS: Diltiazem CD (24hr) 120 MG CAPSULE PO SCH (09:36)
--- NOTE | 2017-03-19 11:58 | Internal Med Progress Note ---
Date of Encounter: 03/19/17 Time of Encounter: 11:56 - Assessment and plan (1) Intertrochanteric fracture of right hip Current Visit: Yes Status: Acute Assessment and plan: Status post IM nailing of right hip on 03/13/[address] Sears. PT recommend placement to skilled rehabilitation. Continue supportive care. Pain control. Moderate risk for complications. Awaiting placement [facility] SNF/ECF likely on 03/20/17 Qualifiers: Encounter type: initial encounter Fracture type: closed Fracture alignment: displaced Qualified Code(s): S72.141A - Displaced intertrochanteric fracture of right femur, initial encounter for closed fracture (2) Acute blood loss as cause of postoperative anemia Current Visit: Yes Status: Acute Assessment and plan: Hgb 14 03/04/2017 and down to 8.1 on 03/16/17. Suspect multifactorial with surgical loss and dilutional component. Hgb stable in 8s. Monitor H&H, transfuse for Hgb less than 8. Occult stool pending (3) Subclinical hyperthyroidism Current Visit: Yes Status: Acute Assessment and plan: TSH 0.3, Free T 4 normal. Recommend repeat thyroid studies in 6-8 weeks (4) Streptococcus pneumoniae pneumonia Current Visit: Yes Status: Acute Assessment and plan: Recently admitted in severe sepsis secondary to pneumonia; treated with Levaquin at that time. Repeat CXR 03/17/17 with LLL infiltrate similar to exam. Urinary antigen positive for strep pneumonia. Change ATB to ceftriaxone, azithromycin since she was recently treated with Levaquin. Qualifiers: Laterality: right Lung location: lower lobe of lung Qualified Code(s): J13 - Pneumonia due to Streptococcus pneumoniae (5) Alzheimer's dementia Current Visit: Yes Status: Chronic Assessment and plan: No signs of delirium. Mentation at baseline. Continue Exelon Qualifiers: Alzheimer's disease onset: unspecified onset Dementia behavioral disturbance: without behavioral disturbance Qualified Code(s): G30.9 - Alzheimer's disease, unspecified; F02.80 - Dementia in other diseases classified elsewhere without behavioral disturbance; F02.80 - Dementia in other diseases classified elsewhere without behavioral disturbance; F02.80 - Dementia in other diseases classified elsewhere without behavioral disturbance (6) Abdominal aortic aneurysm Current Visit: Yes Status: Chronic Assessment and plan: Follow-up outpatient with vascular surgery and cardiology. No acute issues. Blood pressure has been low since yesterday so beta bandar has been held. May resume once blood pressure improves. Qualifiers: Presence of rupture: without rupture Qualified Code(s): I71.4 - Abdominal aortic aneurysm, without rupture - Subjective Interval history: Patient seen and examined. chart reviewed. Patient is comfortably lying in the bed. Patient's family members at bedside. Patient denies any chest pain, shortness of breath, nausea, vomiting, abdominal pain, dizziness or diarrhea. - Constitutional Vitals: Temp Pulse Resp BP Pulse Ox 98.5 F 81 16 98/55 96 03/19/17 03:05 03/19/17 09:46 03/19/17 09:46 03/19/17 09:46 03/19/17 09:46 General appearance: Present: cachectic, cooperative, A&O X 2, answers questions appropriately - Head Head exam: Present: atraumatic, normocephalic - Eye Eye exam: Present: PERRL, conjuntiva pink, sclera anicteric Pupils: Present: PERRL - Neck Neck exam general surgery: Present: supple, trachea midline. Absent: lymphadenopathy - Respiratory Respiratory exam: Present: CTAB. Absent: accessory muscle use, rales, rhonchi, wheezes - Cardiovascular Cardiovascular exam: Present: RRR, +S1, +S2. Absent: diastolic murmur, gallop, rubs, systolic murmur - GI/Abdominal GI/Abdominal exam: Present: normal bowel sounds, soft, no peritoneal signs. Absent: distended, tenderness - Extremities Exam Extremities exam: Present: warm, radial pulses palpable and symmetrical. Absent : calf tenderness, cyanotic, pedal edema - Neurological Exam Neurological exam: Present: CN II-XII intact, oriented X3, no focal deficits. Absent: pronater drift, facial droop, speech deficit - Skin Skin exam: Present: dry, intact Internal Medicine: Result - Labs CBC & Chem 7: 03/19/17 04:17 03/19/17 04:17 Labs: Short CBC 03/19/17 Range/Units 04:17 WBC 8.4 (4.3-11.1) K/mcL Hgb 8.6 L (11.5-15.4) g/dL Hct 27.2 L (35.3-44.9) % Plt Count 307 (140-400) K/mcL BMP 03/19/17 04:17 Sodium 138 Potassium 3.5 Chloride 103 Carbon Dioxide 31 H BUN 10 Creatinine 0.52 L Glucose 93 Calcium 8.0 L Liver Function 03/19/17 Range/Units 04:17 Total Bilirubin 1.1 (0.2-1.2) mg/dL AST 18 (5-34) Units/L ALT 11 (0-55) Units/L Alkaline Phosphatase 69 (38-126) Units/L Albumin 1.8 L (3.5-5.0) g/dL - VTE Documentation of Mechanical Device: Venous foot pump, device Consult Discharge Plan - Plan Referrals: Tyrone Sears DO [Non-Partnered Physician] - 03/31/17 1:15 pm Bonita Nguyen, EMMANUEL [Primary Care Provider] -
[2017-03-20] MEDS: Tiotropium 18 MCG inhalation IH SCH (08:21)
[2017-03-20] MEDS: Budesonide/Formoterol 160/4.5 MDI IH SCH ×2 (08:21→19:59)
[2017-03-20] MEDS: Rivastigmine Patch 4.6 MG PATCH.TD24 TD SCH (08:59)
[2017-03-20] MEDS: Diltiazem CD (24hr) 120 MG CAPSULE PO SCH (09:00)
[2017-03-20] MEDS: Levofloxacin 750 MG/150 ML 750 MG/150 ML BAG IVPB SCH (09:00)
--- NOTE | 2017-03-20 14:05 | Internal Med Progress Note ---
Date of Encounter: 03/20/17 Time of Encounter: 14:03 - Assessment and plan (1) Intertrochanteric fracture of right hip Current Visit: Yes Status: Acute Assessment and plan: Status post IM nailing of right hip on 03/13/[address] Sears. PT recommend placement to skilled rehabilitation. Continue supportive care. Pain control. Moderate risk for complications. Awaiting placement [facility] SNF/ECF likely on 03/22/17 Qualifiers: Encounter type: initial encounter Fracture type: closed Fracture alignment: displaced Qualified Code(s): S72.141A - Displaced intertrochanteric fracture of right femur, initial encounter for closed fracture (2) Streptococcus pneumoniae pneumonia Current Visit: Yes Status: Acute Assessment and plan: Recently admitted in severe sepsis secondary to pneumonia; treated with Levaquin at that time. Repeat CXR 03/17/17 with LLL infiltrate similar to exam. Urinary antigen positive for strep pneumonia. continue Levaquin. Qualifiers: Laterality: right Lung location: lower lobe of lung Qualified Code(s): J13 - Pneumonia due to Streptococcus pneumoniae (3) COPD (chronic obstructive pulmonary disease) Current Visit: Yes Status: Chronic Assessment and plan: Not in acute exacerbation.on 2 l NC at home Qualifiers: COPD type: emphysema Emphysema type: other Qualified Code(s): J43.8 - Other emphysema (4) Alzheimer's dementia Current Visit: Yes Status: Chronic Assessment and plan: No signs of delirium. Mentation at baseline. Continue Exelon Qualifiers: Alzheimer's disease onset: unspecified onset Dementia behavioral disturbance: without behavioral disturbance Qualified Code(s): G30.9 - Alzheimer's disease, unspecified; F02.80 - Dementia in other diseases classified elsewhere without behavioral disturbance; F02.80 - Dementia in other diseases classified elsewhere without behavioral disturbance; F02.80 - Dementia in other diseases classified elsewhere without behavioral disturbance (5) Acute blood loss as cause of postoperative anemia Current Visit: Yes Status: Acute Assessment and plan: Hgb 14 03/04/2017 and down to 8.1 on 03/16/17. Suspect multifactorial with surgical loss and dilutional component. Hgb stable in 8s. Monitor H&H, transfuse for Hgb less than 8.stable - Time Spent With Patient 25 - 35 minutes - Subjective Interval history: Patient seen and examined. chart reviewed. Patient is comfortably lying in the bed. Patient's family members at bedside. Patient denies any chest pain, shortness of breath, nausea, vomiting, abdominal pain, dizziness or diarrhea Daughters at the bedside, patient wears 2 L nasal cannula at night at home, she seems more shortness of breath - Constitutional Vitals: Temp Pulse Resp BP Pulse Ox 97.8 F 101 16 115/73 98 03/20/17 12:56 03/20/17 12:56 03/20/17 12:56 03/20/17 12:56 03/20/17 12:56 CONSTITUTIONAL: patient appears as an age appropriate female in no acute distress. EYES Clear sclerae, bilateral pupils are equal, reactive to light. EMOI. RESPIRATORY: No accessory muscle use, bilateral reduced breath sounds to auscultation, no wheezing, no crackles/rales. CARDIOVASCULAR: Regular heart rate, normal S1 and S2, no murmurs GASTROINTESTINAL: bowel sounds present, soft, no tenderness. MUSCULOSKELETAL: Joints in normal range of motion, no clubbing, no edema, no cyanosis. Bilateral peripheral pulses 2+. NEUROLOGIC: CN II to XII are grossly intact, no focal neurological deficit. General appearance: Present: cachectic, cooperative, A&O X 2, answers questions appropriately Internal Medicine: Result - Labs CBC & Chem 7: 03/19/17 04:17 03/19/17 04:17 - VTE Documentation of Mechanical Device: Venous foot pump, device Consult Discharge Plan - Plan Referrals: Tyrone Sears DO [Non-Partnered Physician] - 03/31/17 1:15 pm Bointa Nguyen CNP [Primary Care Provider] -
[2017-03-21 06:32] LABS: Hematocrit 29.3 % (35.3-44.9); Hemoglobin 9.3 g/dL (11.5-15.4); Immature Granulocytes % 0.4 % (0-4); Lymphocytes % 5.6 %; Mean Corpuscular HGB Conc 31.7 g/dL (31.6-35.5); Mean Corpuscular Hemoglobin 30.2 pg (28.0-33.3); Mean Corpuscular Volume 95.1 fL (83.0-100.0); Mean Platelet Volume 10.7 fL (9.4-12.4); Platelet Count 298 K/mcL (140-400); Red Blood Count 3.08 M/mcL (3.82-4.97); Red Cell Distribution Width 14.6 % (11.5-14.5); Segmented Neutrophils % 86.2 %
[2017-03-21 06:33] LABS: Basophils # 0.1 K/mcL (0.0-0.2); Basophils % 0.4 %; Eosinophils # 0.2 K/mcL (0.0-0.6); Eosinophils % 1.1 %; Lymphocytes # 0.9 K/mcL (0.6-4.6); Monocytes # 1.1 K/mcL (0.0-1.3); Monocytes % 6.3 %; Neutrophils # 14.5 K/mcL (1.6-8.9)
[2017-03-21 06:42] LABS: BUN/Creatinine Ratio 20 (6-26); Blood Urea Nitrogen 11 mg/dL (7-20); Calcium 7.8 mg/dL (8.6-10.8); Carbon Dioxide 27 mEq/L (19-29); Chloride 102 mEq/L (98-109); Glucose 88 mg/dL (70-99); Osmolality,Calculated 281 (280-300); Potassium 3.6 mEq/L (3.5-4.5); Sodium 136 mEq/L (136-145); eGFR For African Americans > 60 (> 60); eGFR For Non-African Americans > 60 (> 60)
[2017-03-21] MEDS: Diltiazem CD (24hr) 120 MG CAPSULE PO SCH (08:47)
[2017-03-21] MEDS: Levofloxacin 750 MG/150 ML 750 MG/150 ML BAG IVPB SCH (08:47)
[2017-03-21] MEDS: Rivastigmine Patch 4.6 MG PATCH.TD24 TD SCH (08:48)
[2017-03-21] MEDS: Tiotropium 18 MCG inhalation IH SCH (10:44)
[2017-03-21] MEDS: Budesonide/Formoterol 160/4.5 MDI IH SCH ×2 (10:44→20:22)
--- NOTE | 2017-03-21 11:20 | Internal Med Progress Note ---
Date of Encounter: 03/21/17 Time of Encounter: 11:19 - Assessment and plan (1) Intertrochanteric fracture of right hip Current Visit: Yes Status: Acute Assessment and plan: Status post IM nailing of right hip on 03/13/[address] Sears. PT recommend placement to skilled rehabilitation. Continue supportive care. Pain control. Moderate risk for complications. Awaiting placement [facility] SNF/ECF likely on 03/22/17 Qualifiers: Encounter type: initial encounter Fracture type: closed Fracture alignment: displaced Qualified Code(s): S72.141A - Displaced intertrochanteric fracture of right femur, initial encounter for closed fracture (2) Streptococcus pneumoniae pneumonia Current Visit: Yes Status: Acute Assessment and plan: Recently admitted in severe sepsis secondary to pneumonia; treated with Levaquin at that time. Repeat CXR 03/17/17 with LLL infiltrate similar to exam. Urinary antigen positive for strep pneumonia. continue Levaquin. Qualifiers: Laterality: right Lung location: lower lobe of lung Qualified Code(s): J13 - Pneumonia due to Streptococcus pneumoniae (3) COPD (chronic obstructive pulmonary disease) Current Visit: Yes Status: Chronic Assessment and plan: Not in acute exacerbation.on 2 l NC at home Qualifiers: COPD type: emphysema Emphysema type: other Qualified Code(s): J43.8 - Other emphysema (4) Alzheimer's dementia Current Visit: Yes Status: Chronic Assessment and plan: No signs of delirium. Mentation at baseline. Continue Exelon Qualifiers: Alzheimer's disease onset: unspecified onset Dementia behavioral disturbance: without behavioral disturbance Qualified Code(s): G30.9 - Alzheimer's disease, unspecified; F02.80 - Dementia in other diseases classified elsewhere without behavioral disturbance; F02.80 - Dementia in other diseases classified elsewhere without behavioral disturbance; F02.80 - Dementia in other diseases classified elsewhere without behavioral disturbance (5) Acute blood loss as cause of postoperative anemia Current Visit: Yes Status: Acute Assessment and plan: Hgb 14 03/04/2017 and down to 8.1 on 03/16/17. Suspect multifactorial with surgical loss and dilutional component. Hgb stable. (6) Leukocytosis Current Visit: Yes Status: Acute Assessment and plan: Present on admission. Likely reactive due to fracture and surgery. WBC increased to 16.8, CXR has no changes on 03/20, will check UA, discussed with nurse to straight cath she is on levaquin for strep ,pneumonia Qualifiers: Leukocytosis type: bandemia Qualified Code(s): D72.825 - Bandemia - Subjective Interval history: Patient seen and examined. chart reviewed. Patient is comfortably lying in the bed. Patient's family members at bedside. Patient denies any chest pain, shortness of breath, nausea, vomiting, abdominal pain, dizziness or diarrhea Daughters at the bedside, patient wears 2 L nasal cannula at night at home, she seems more shortness of breath She is afebrile, no abdominal tenderness. She was on room air sats 85%, since recovered to 96% on 2 L nasal cannula. - Constitutional Vitals: Temp Pulse Resp BP Pulse Ox 98.1 F 96 15 114/65 96 03/21/17 06:42 03/21/17 06:42 03/21/17 06:42 03/21/17 06:42 03/21/17 06:42 CONSTITUTIONAL: patient appears as an age appropriate female in no acute distress. EYES Clear sclerae, bilateral pupils are equal, reactive to light. EMOI. RESPIRATORY: No accessory muscle use, bilateral clear to auscultation, no wheezing, no crackles/rales. CARDIOVASCULAR: Regular heart rate, normal S1 and S2, no murmurs GASTROINTESTINAL: bowel sounds present, soft, no tenderness. MUSCULOSKELETAL: Joints in normal range of motion, no clubbing, no edema, no cyanosis. Bilateral peripheral pulses 2+. NEUROLOGIC: CN II to XII are grossly intact, no focal neurological deficit. General appearance: Present: cachectic, cooperative, A&O X 2, answers questions appropriately Internal Medicine: Result - Labs CBC & Chem 7: 03/21/17 06:13 03/21/17 06:13 Labs: Short CBC 03/21/17 Range/Units 06:13 WBC 16.8 H D (4.3-11.1) K/mcL Hgb 9.3 L (11.5-15.4) g/dL Hct 29.3 L (35.3-44.9) % Plt Count 298 (140-400) K/mcL Neutrophils # 14.5 H (1.6-8.9) K/mcL BMP 03/21/17 06:13 Sodium 136 Potassium 3.6 Chloride 102 Carbon Dioxide 27 BUN 11 Creatinine 0.54 L Glucose 88 Calcium 7.8 L - Impressions Impressions Chest X-Ray 03/20/17 13:58 IMPRESSION: No significant interval change. D/ / Catracho Matamoros MD / Catracho Matamoros MD Interpreting Provider: Catracho Matamoros MD - VTE Documentation of Mechanical Device: Venous foot pump, device Consult Discharge Plan - Plan Referrals: Tyrone Sears DO [Non-Partnered Physician] - 03/31/17 1:15 pm Bonita Nguyen, PLANT TAXONOMIST [Primary Care Provider] -
[2017-03-21 14:43] LABS: Bilirubin,Urine Negative (Negative); Blood,Urine Negative (Negative); Clarity,Urine Clear (Clear); Color,Urine Yellow (Yellow); Glucose,Urine (UA) Normal (Normal); Ketones,Urine Negative (Negative); Leukocyte Esterase,Urine Negative (Negative); Nitrite,Urine Negative (Negative); Protein,Urine Negative (Neg-Trace); Specific Gravity,Urine 1.018 (1.010-1.025); Urobilinogen,Urine Normal (Normal)
[2017-03-22 05:16] LABS: Basophils % 0.4 %; Eosinophils # 0.3 K/mcL (0.0-0.6); Eosinophils % 2.4 %; Hematocrit 28.8 % (35.3-44.9); Hemoglobin 9.1 g/dL (11.5-15.4); Immature Granulocytes % 0.7 % (0-4); Lymphocytes # 1.2 K/mcL (0.6-4.6); Lymphocytes % 11.3 %; Mean Corpuscular HGB Conc 31.6 g/dL (31.6-35.5); Mean Corpuscular Hemoglobin 29.9 pg (28.0-33.3); Mean Corpuscular Volume 94.7 fL (83.0-100.0); Mean Platelet Volume 10.8 fL (9.4-12.4); Monocytes # 0.8 K/mcL (0.0-1.3); Monocytes % 7.1 %; Neutrophils # 8.2 K/mcL (1.6-8.9); Platelet Count 264 K/mcL (140-400); Red Blood Count 3.04 M/mcL (3.82-4.97); Red Cell Distribution Width 14.6 % (11.5-14.5); Segmented Neutrophils % 78.1 %
[2017-03-22 05:31] LABS: BUN/Creatinine Ratio 31 (6-26); Blood Urea Nitrogen 15 mg/dL (7-20); Calcium 8.3 mg/dL (8.6-10.8); Carbon Dioxide 28 mEq/L (19-29); Chloride 100 mEq/L (98-109); Glucose 83 mg/dL (70-99); Osmolality,Calculated 276 (280-300); Potassium 3.5 mEq/L (3.5-4.5); Sodium 133 mEq/L (136-145); eGFR For African Americans > 60 (> 60); eGFR For Non-African Americans > 60 (> 60)
[2017-03-22] MEDS: Budesonide/Formoterol 160/4.5 MDI IH SCH ×2 (08:15→22:15)
[2017-03-22] MEDS: Tiotropium 18 MCG inhalation IH SCH (08:16)
--- NOTE | 2017-03-22 08:26 | Electrocardiograph Report ---
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
[2017-03-22] MEDS: Diltiazem CD (24hr) 120 MG CAPSULE PO SCH (09:26)
[2017-03-22] MEDS: Levofloxacin 750 MG/150 ML 750 MG/150 ML BAG IVPB SCH (09:26)
[2017-03-22] MEDS: Rivastigmine Patch 4.6 MG PATCH.TD24 TD SCH (09:42)
[2017-03-22] MEDS: Silvasorb 44.4 ML TUBE TP SCH (15:06)
--- NOTE | 2017-03-22 19:50 | Internal Med Progress Note ---
Date of Encounter: 03/22/17 Time of Encounter: 19:49 - Assessment and plan (1) Intertrochanteric fracture of right hip Current Visit: Yes Status: Acute Assessment and plan: Status post IM nailing of right hip on 03/13/[address] Sears. PT recommend placement to skilled rehabilitation. Continue supportive care. Pain control. Moderate risk for complications. Awaiting placement [facility] SNF/ECF likely on 03/22/17 03/22/2017 Patient is medically clear. Awaiting for placement. I was informed by social welfare research worker that this patient has a complex insurance and we will have to wait for preauthorization. Qualifiers: Encounter type: initial encounter Fracture type: closed Fracture alignment: displaced Qualified Code(s): S72.141A - Displaced intertrochanteric fracture of right femur, initial encounter for closed fracture (2) Acute blood loss as cause of postoperative anemia Current Visit: Yes Status: Acute Assessment and plan: Hgb 14 03/04/2017 and down to 8.1 on 03/16/17. Suspect multifactorial with surgical loss and dilutional component. Hgb stable. (3) Subclinical hyperthyroidism Current Visit: Yes Status: Acute Assessment and plan: TSH 0.3, Free T 4 normal. Recommend repeat thyroid studies in 6-8 weeks (4) Streptococcus pneumoniae pneumonia Current Visit: Yes Status: Acute Assessment and plan: Recently admitted in severe sepsis secondary to pneumonia; treated with Levaquin at that time. Repeat CXR 03/17/17 with LLL infiltrate similar to exam. Urinary antigen positive for strep pneumonia. continue Levaquin. Qualifiers: Laterality: right Lung location: lower lobe of lung Qualified Code(s): J13 - Pneumonia due to Streptococcus pneumoniae (5) Alzheimer's dementia Current Visit: Yes Status: Chronic Assessment and plan: No signs of delirium. Mentation at baseline. Continue Exelon Qualifiers: Alzheimer's disease onset: unspecified onset Dementia behavioral disturbance: without behavioral disturbance Qualified Code(s): G30.9 - Alzheimer's disease, unspecified; F02.80 - Dementia in other diseases classified elsewhere without behavioral disturbance; F02.80 - Dementia in other diseases classified elsewhere without behavioral disturbance; F02.80 - Dementia in other diseases classified elsewhere without behavioral disturbance (6) Abdominal aortic aneurysm Current Visit: Yes Status: Chronic Assessment and plan: Follow-up outpatient with vascular surgery and cardiology. No acute issues. Blood pressure has been low since yesterday so beta bandar has been held. May resume once blood pressure improves. Qualifiers: Presence of rupture: without rupture Qualified Code(s): I71.4 - Abdominal aortic aneurysm, without rupture - Subjective Interval history: Patient seen and examined. chart reviewed. Patient is comfortably lying in the bed. Patient's family members at bedside. Patient denies any chest pain, shortness of breath, nausea, vomiting, abdominal pain, dizziness or diarrhea. 03/22/2017. Patient is comfortably lying in a bed. Chart reviewed. Patient denies any pain, nausea, vomiting or dizziness - Constitutional Vitals: Temp Pulse Resp BP Pulse Ox 98.1 F 96 17 104/55 98 03/22/17 19:12 03/22/17 19:12 03/22/17 19:12 03/22/17 19:12 03/22/17 19:12 General appearance: Present: cachectic, cooperative, A&O X 2, answers questions appropriately - Head Head exam: Present: atraumatic, normocephalic - Eye Eye exam: Present: PERRL, conjuntiva pink, sclera anicteric Pupils: Present: PERRL - Neck Neck exam general surgery: Present: supple, trachea midline. Absent: lymphadenopathy - Respiratory Respiratory exam: Present: CTAB. Absent: accessory muscle use, rales, rhonchi, wheezes - Cardiovascular Cardiovascular exam: Present: RRR, +S1, +S2. Absent: diastolic murmur, gallop, rubs, systolic murmur - GI/Abdominal GI/Abdominal exam: Present: normal bowel sounds, soft, no peritoneal signs. Absent: distended, tenderness - Extremities Exam Extremities exam: Present: warm, radial pulses palpable and symmetrical. Absent : calf tenderness, cyanotic, pedal edema - Neurological Exam Neurological exam: Present: CN II-XII intact, oriented X3, no focal deficits. Absent: pronater drift, facial droop, speech deficit - Skin Skin exam: Present: dry, intact Internal Medicine: Result - Labs CBC & Chem 7: 03/22/17 04:54 03/22/17 04:54 Labs: Short CBC 03/22/17 Range/Units 04:54 WBC 10.5 (4.3-11.1) K/mcL Hgb 9.1 L (11.5-15.4) g/dL Hct 28.8 L (35.3-44.9) % Plt Count 264 (140-400) K/mcL Neutrophils # 8.2 (1.6-8.9) K/mcL BMP 03/22/17 04:54 Sodium 133 L Potassium 3.5 Chloride 100 Carbon Dioxide 28 BUN 15 Creatinine 0.48 L Glucose 83 Calcium 8.3 L - VTE Documentation of Mechanical Device: Venous foot pump, device Consult Discharge Plan - Plan Referrals: Tyrone Sears DO [Non-Partnered Physician] - 03/31/17 1:15 pm Bonita Nguyen, EMMANUEL [Primary Care Provider] -
[2017-03-23] MEDS: Budesonide/Formoterol 160/4.5 MDI IH SCH (08:03)
[2017-03-23] MEDS: Tiotropium 18 MCG inhalation IH SCH (08:03)
[2017-03-23] MEDS: Diltiazem CD (24hr) 120 MG CAPSULE PO SCH (08:57)
[2017-03-23] MEDS: Levofloxacin 750 MG/150 ML 750 MG/150 ML BAG IVPB SCH (08:57)
[2017-03-23] MEDS: Rivastigmine Patch 4.6 MG PATCH.TD24 TD SCH (08:57)
[2017-03-23] MEDS: Silvasorb 44.4 ML TUBE TP SCH (09:01)
--- NOTE | 2017-03-23 12:34 | Internal Med Progress Note ---
Date of Encounter: 03/23/17 Time of Encounter: 12:32 - Assessment and plan (1) Severe sepsis Current Visit: No Status: Acute Assessment and plan: due to pneumonia continue levaquin (2) Acute and chronic respiratory failure Current Visit: No Status: Acute Assessment and plan: clinically improving but still sob Qualifiers: Respiratory failure complication: unspecified whether with hypoxia or hypercapnia Qualified Code(s): J96.20 - Acute and chronic respiratory failure , unspecified whether with hypoxia or hypercapnia (3) COPD (chronic obstructive pulmonary disease) Current Visit: Yes Status: Chronic Qualifiers: COPD type: emphysema Emphysema type: other Qualified Code(s): J43.8 - Other emphysema (4) Alzheimer's dementia Current Visit: Yes Status: Chronic Assessment and plan: chronic Qualifiers: Alzheimer's disease onset: unspecified onset Dementia behavioral disturbance: without behavioral disturbance Qualified Code(s): G30.9 - Alzheimer's disease, unspecified; F02.80 - Dementia in other diseases classified elsewhere without behavioral disturbance; F02.80 - Dementia in other diseases classified elsewhere without behavioral disturbance; F02.80 - Dementia in other diseases classified elsewhere without behavioral disturbance (5) Atrial fibrillation with RVR Current Visit: Yes Status: Chronic Assessment and plan: seen by cardiology now in sinus rhythm (6) Intertrochanteric fracture of right hip Current Visit: Yes Status: Acute Assessment and plan: s/p surgery Qualifiers: Encounter type: initial encounter Fracture type: closed Fracture alignment: displaced Qualified Code(s): S72.141A - Displaced intertrochanteric fracture of right femur, initial encounter for closed fracture (7) Anemia Current Visit: Yes Status: Acute Qualifiers: Anemia type: other cause Other causes of anemia: other cause, not classified Qualified Code(s): D64.89 - Other specified anemias - Subjective Interval history: Patient with history of atrial fibrillation, hypertension, abdominal aneurysm, COPD, dementia. Patient was admitted following a fall with right hip fracture underwent hip fracture surgery and today patient still have shortness of breath , denies any chest pain family in room also had recent pneumonia and sepsis be treated with Levaquin IV - Constitutional Vitals: Temp Pulse Resp BP Pulse Ox 98.7 F 101 16 93/60 96 03/23/17 10:10 03/23/17 10:10 03/23/17 10:10 03/23/17 10:10 03/23/17 10:10 General appearance: Present: cachectic, cooperative, A&O X 2, answers questions appropriately - Respiratory Respiratory exam: Present: rales, rhonchi - Cardiovascular Cardiovascular exam: Present: +S1, +S2, systolic murmur - GI/Abdominal GI/Abdominal exam: Present: normal bowel sounds, soft, no peritoneal signs. Absent: distended, tenderness - Extremities Exam Extremities exam: Present: tenderness Internal Medicine: Result - Labs CBC & Chem 7: 03/22/17 04:54 03/22/17 04:54 - VTE Documentation of Mechanical Device: Venous foot pump, device Consult Discharge Plan - Plan Referrals: Tyrone Sears DO [Non-Partnered Physician] - 03/31/17 1:15 pm Bonita Nguyen, YARD MANAGER [Primary Care Provider] -
[2017-03-23] MEDS ORDERED: Furosemide 40 MG/4 ML VIAL IVP ONE (14:03)
[2017-03-24] MEDS: Budesonide/Formoterol 160/4.5 MDI IH SCH ×3 (02:34→20:26)
[2017-03-24] MEDS: Diltiazem CD (24hr) 120 MG CAPSULE PO SCH ×2 (09:36→09:47)
[2017-03-24] MEDS: levoFLOXacin 750 MG TABLET PO SCH (09:36)
[2017-03-24] MEDS: Rivastigmine Patch 4.6 MG PATCH.TD24 TD SCH (09:37)
[2017-03-24] MEDS: Tiotropium 18 MCG inhalation IH SCH (11:12)
[2017-03-24] MEDS: Silvasorb 44.4 ML TUBE TP SCH (15:15)
[2017-03-25] MEDS: Tiotropium 18 MCG inhalation IH SCH (07:44)
[2017-03-25] MEDS: Budesonide/Formoterol 160/4.5 MDI IH SCH (07:44)
--- NOTE | 2017-03-25 08:17 | Internal Med Progress Note ---
Date of Encounter: 03/25/17 Time of Encounter: 08:15 - Assessment and plan (1) Severe sepsis Current Visit: Yes Status: Acute Assessment and plan: urine antigen legionella on levaquin (2) Acute and chronic respiratory failure Current Visit: No Status: Acute Assessment and plan: clinically much better Qualifiers: Respiratory failure complication: unspecified whether with hypoxia or hypercapnia Qualified Code(s): J96.20 - Acute and chronic respiratory failure , unspecified whether with hypoxia or hypercapnia (3) COPD (chronic obstructive pulmonary disease) Current Visit: Yes Status: Chronic Assessment and plan: chronic Qualifiers: COPD type: emphysema Emphysema type: other Qualified Code(s): J43.8 - Other emphysema (4) Alzheimer's dementia Current Visit: Yes Status: Chronic Qualifiers: Alzheimer's disease onset: unspecified onset Dementia behavioral disturbance: without behavioral disturbance Qualified Code(s): G30.9 - Alzheimer's disease, unspecified; F02.80 - Dementia in other diseases classified elsewhere without behavioral disturbance; F02.80 - Dementia in other diseases classified elsewhere without behavioral disturbance; F02.80 - Dementia in other diseases classified elsewhere without behavioral disturbance (5) Atrial fibrillation with RVR Current Visit: Yes Status: Chronic Assessment and plan: seen by cardiology not on monitor (6) Intertrochanteric fracture of right hip Current Visit: Yes Status: Acute Assessment and plan: s/p surgery no complication awaiting rehab transfer Qualifiers: Encounter type: initial encounter Fracture type: closed Fracture alignment: displaced Qualified Code(s): S72.141A - Displaced intertrochanteric fracture of right femur, initial encounter for closed fracture (7) Anemia Current Visit: Yes Status: Acute Qualifiers: Anemia type: other cause Other causes of anemia: other cause, not classified Qualified Code(s): D64.89 - Other specified anemias - Subjective Interval history: Patient with history of atrial fibrillation, hypertension, abdominal aneurysm, COPD, dementia. Patient was admitted following a fall with right hip fracture underwent hip fracture surgery and today patient still have shortness of breath , denies any chest pain family in room also had recent pneumonia and sepsis be treated with Levaquin IV patient seen and examined no new complains - Constitutional Vitals: Temp Pulse Resp BP Pulse Ox 98.3 F 78 16 104/68 98 03/25/17 06:30 03/25/17 06:30 03/25/17 07:46 03/25/17 06:30 03/25/17 07:46 General appearance: Present: cachectic, cooperative, A&O X 2, answers questions appropriately - Eye Eye exam: Present: PERRL, conjuntiva pink, sclera anicteric Pupils: Present: PERRL - Neck Neck exam general surgery: Present: supple, trachea midline. Absent: lymphadenopathy - Respiratory Respiratory exam: Present: rhonchi, wheezes - Cardiovascular Cardiovascular exam: Present: RRR, +S1, +S2. Absent: diastolic murmur, gallop, rubs, systolic murmur - GI/Abdominal GI/Abdominal exam: Present: normal bowel sounds, soft, no peritoneal signs. Absent: distended, tenderness - Extremities Exam Extremities exam: Present: warm, radial pulses palpable and symmetrical. Absent : calf tenderness, cyanotic, pedal edema Internal Medicine: Result - Labs CBC & Chem 7: 03/22/17 04:54 03/22/17 04:54 - VTE Documentation of Mechanical Device: Venous foot pump, device Consult Discharge Plan - Plan Referrals: Tyrone Sears DO [Non-Partnered Physician] - 03/31/17 1:15 pm Bonita Nguyen ADMISSIONS CONSULTANT [Primary Care Provider] -
[2017-03-25] MEDS: Silvasorb 44.4 ML TUBE TP SCH (10:11)
[2017-03-25] MEDS: Rivastigmine Patch 4.6 MG PATCH.TD24 TD SCH (10:11)
[2017-03-25] MEDS: levoFLOXacin 750 MG TABLET PO SCH (10:11)
[2017-03-25] MEDS: Diltiazem CD (24hr) 120 MG CAPSULE PO SCH (10:11)
[2017-03-25 10:36] VITALS: BP 106/64
--- NOTE | 2017-03-25 14:49 | Discharge Summary ---
Date of Encounter: 03/25/17 Time of Encounter: 14:47 - Discharge Diagnosis (1) Severe sepsis Priority: Secondary Status: Acute (2) Acute and chronic respiratory failure Priority: Secondary Status: Acute Qualifiers: Respiratory failure complication: unspecified whether with hypoxia or hypercapnia Qualified Code(s): J96.20 - Acute and chronic respiratory failure , unspecified whether with hypoxia or hypercapnia (3) COPD (chronic obstructive pulmonary disease) Priority: Secondary Status: Chronic Qualifiers: COPD type: emphysema Emphysema type: other Qualified Code(s): J43.8 - Other emphysema (4) Alzheimer's dementia Priority: Secondary Status: Chronic Qualifiers: Alzheimer's disease onset: unspecified onset Dementia behavioral disturbance: without behavioral disturbance Qualified Code(s): G30.9 - Alzheimer's disease, unspecified; F02.80 - Dementia in other diseases classified elsewhere without behavioral disturbance; F02.80 - Dementia in other diseases classified elsewhere without behavioral disturbance; F02.80 - Dementia in other diseases classified elsewhere without behavioral disturbance (5) Atrial fibrillation with RVR Priority: Secondary Status: Chronic (6) Intertrochanteric fracture of right hip Priority: Primary Status: Acute Qualifiers: Encounter type: initial encounter Fracture type: closed Fracture alignment: displaced Qualified Code(s): S72.141A - Displaced intertrochanteric fracture of right femur, initial encounter for closed fracture (7) Anemia Priority: Secondary Status: Acute Qualifiers: Anemia type: other cause Other causes of anemia: other cause, not classified Qualified Code(s): D64.89 - Other specified anemias - Discharge Medications Home Medications: Albuterol Sulfate [Proair Hfa] 1 - 2 puff IH Q6H PRN 03/04/17 [History] Aspirin [Lo-Dose Aspirin EC] 81 mg PO DAILY 03/04/17 [History] Montelukast [Singulair] 10 mg PO DAILY 03/04/17 [History] Pantoprazole Sodium [Protonix] 40 mg PO DAILY 03/04/17 [History] Potassium Chloride [K-Tab ER] 10 meq PO DAILY 03/04/17 [History] Rivastigmine 1 patch TD QDPC 03/04/17 [History] Budesonide/Formoterol 160/4.5 [Symbicort 160/4.5] 2 puff IH BID 03/05/17 [ History] Tiotropium [Spiriva] 18 mcg IH DAILY 03/05/17 [History] Atorvastatin [Lipitor] 40 mg PO HS #30 tablet 03/08/17 [Rx] Digoxin [Lanoxin] 0.125 mg PO DAILY #30 tablet 03/08/17 [Rx] Docusate [Colace] 100 mg PO BID PRN #20 capsule 03/08/17 [Rx] Diltiazem CD (24hr) [Cardizem CD] 120 mg PO DAILY 03/13/17 [History] Allergies/Adverse Reactions: 3 Allergy/AdvReac Type Severity Reaction Status Date / Time No Known Allergies Allergy Verified 03/13/17 00:31 Date of admission: 03/13/17 07:41 Primary care physician: Bonita Nguyen CNP Consults: 03/13/17 08:07 Consult to Orthopedic Surgery [CONS] Routine Consulting Provider: Orthopedic and Sports Medicine Reason for Consult: Right hip fracture Time Notified: 08:07 Call Completed: Yes 03/13/17 23:58 Consult to Occupational Therapy [CONS] Routine Comment: Evaluate, develop and implement POC Reason for Consult: ADLs Consult to Physical Therapy [CONS] Routine Comment: Evaluate, develop and implement POC Reason for Consult: Hip Fx WBAT RLE Consult to Arborer [CONS] Routine Reason for SW Consult: DC 03/16/17 18:49 Consult to Cardiology [CONS] Routine Comment: Consulting Provider: Cardiology Aliya Reason for Consult: A-flutter with RVR, chest pain, tachycardia, per Sindi Escoto Call Completed: Yes 03/20/17 13:16 Consult to Wound Care [CONS] Routine Reason for Consult: stage 2 pressure wound to coccyx Call Completed: Yes Discharging clinician: Sarita Morillo Anticipated date of discharge: 03/25/17 - Patient Status Disposition: Transfer SNF Condition: Good Overall status at discharge: patient is progressing back to baseline - Discharge Instructions Follow Up With: Bonita Nguyen CNP [Primary Care Provider] - - Diet and Activity Activity: other Diet: regular diet Hospital course: Ms. Cortes is a 71 year old female - Time Spent with Patient Total time spent providing and/or coordinating discharge services: - Constitutional Vitals: Temp Pulse Resp BP Pulse Ox 98.2 F 73 16 106/64 96 03/25/17 10:35 03/25/17 10:35 03/25/17 10:35 03/25/17 10:35 03/25/17 10:35 General appearance: Present: cachectic, cooperative, A&O X 2, answers questions appropriately - VTE Documentation of Mechanical Device: Venous foot pump, device
--- NOTE | 2017-03-25 14:51 | Physician Discharge Referral ---
ExtendedCare Referral Info Transfer To: snf Provider in Charge after Transfer: PCP Institutional Level of Care: Skilled - Diagnosis (1) Severe sepsis Status: Acute (2) Acute and chronic respiratory failure Status: Acute (3) COPD (chronic obstructive pulmonary disease) Status: Chronic (4) Alzheimer's dementia Status: Chronic (5) Atrial fibrillation with RVR Status: Chronic (6) Intertrochanteric fracture of right hip Status: Acute (7) Anemia Status: Acute - Transfer Medications Home Medications: Albuterol Sulfate [Proair Hfa] 1 - 2 puff IH Q6H PRN 03/04/17 [History] Aspirin [Lo-Dose Aspirin EC] 81 mg PO DAILY 03/04/17 [History] Montelukast [Singulair] 10 mg PO DAILY 03/04/17 [History] Pantoprazole Sodium [Protonix] 40 mg PO DAILY 03/04/17 [History] Potassium Chloride [K-Tab ER] 10 meq PO DAILY 03/04/17 [History] Rivastigmine 1 patch TD QDPC 03/04/17 [History] Budesonide/Formoterol 160/4.5 [Symbicort 160/4.5] 2 puff IH BID 03/05/17 [ History] Tiotropium [Spiriva] 18 mcg IH DAILY 03/05/17 [History] Atorvastatin [Lipitor] 40 mg PO HS #30 tablet 03/08/17 [Rx] Digoxin [Lanoxin] 0.125 mg PO DAILY #30 tablet 03/08/17 [Rx] Docusate [Colace] 100 mg PO BID PRN #20 capsule 03/08/17 [Rx] Diltiazem CD (24hr) [Cardizem CD] 120 mg PO DAILY 03/13/17 [History] Allergies/Adverse Reactions: 3 Allergy/AdvReac Type Severity Reaction Status Date / Time No Known Allergies Allergy Verified 03/13/17 00:31 - Respiratory Orders Smoking Cessation: Smoking cessation has been advised. For more information, call the [employer] Tobacco Quit Line at 2-909-DFYM-NOW. - Mobility Orders Other - Rehabiliation Orders Rehab Orders: Evaluation for Physical Therapy, Evaluation for Occupational Therapy - Diet Orders Regular CERTIFICATION: I certify that the transfer of the above named patient to an Extended Care Facility is necessary for the continuing treatment of the diagnosis listed. The above information is true and accurate reflection of patient's current condition. Confidential - Redisclosure prohibited without a patient's written consent.
--- NOTE | 2017-03-25 14:58 | Discharge Summary ---
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 Qualified Code(s): J43.8 - Other emphysema (4) Alzheimer's dementia Status: Chronic Qualifiers: Alzheimer's disease onset: unspecified onset Dementia behavioral disturbance: without behavioral disturbance Qualified Code(s): G30.9 - Alzheimer's disease, unspecified; F02.80 - Dementia in other diseases classified elsewhere without behavioral disturbance; F02.80 - Dementia in other diseases classified elsewhere without behavioral disturbance; F02.80 - Dementia in other diseases classified elsewhere without behavioral disturbance (5) Atrial fibrillation with RVR Status: Chronic (6) Intertrochanteric fracture of right hip Status: Acute Qualifiers: Encounter type: initial encounter Fracture type: closed Fracture alignment: displaced Qualified Code(s): S72.141A - Displaced intertrochanteric fracture of right femur, initial encounter for closed fracture (7) Anemia Status: Acute Qualifiers: Anemia type: other cause Other causes of anemia: other cause, not classified Qualified Code(s): D64.89 - Other specified anemias - Discharge Medications Home Medications: Albuterol Sulfate [Proair Hfa] 1 - 2 puff IH Q6H PRN 03/04/17 [History] Aspirin [Lo-Dose Aspirin EC] 81 mg PO DAILY 03/04/17 [History] Montelukast [Singulair] 10 mg PO DAILY 03/04/17 [History] Pantoprazole Sodium [Protonix] 40 mg PO DAILY 03/04/17 [History] Potassium Chloride [K-Tab ER] 10 meq PO DAILY 03/04/17 [History] Rivastigmine 1 patch TD QDPC 03/04/17 [History] Budesonide/Formoterol 160/4.5 [Symbicort 160/4.5] 2 puff IH BID 03/05/17 [ History] Tiotropium [Spiriva] 18 mcg IH DAILY 03/05/17 [History] Atorvastatin [Lipitor] 40 mg PO HS #30 tablet 03/08/17 [Rx] Digoxin [Lanoxin] 0.125 mg PO DAILY #30 tablet 03/08/17 [Rx] Docusate [Colace] 100 mg PO BID PRN #20 capsule 03/08/17 [Rx] Diltiazem CD (24hr) [Cardizem CD] 120 mg PO DAILY 03/13/17 [History] Allergies/Adverse Reactions: 3 Allergy/AdvReac Type Severity Reaction Status Date / Time No Known Allergies Allergy Verified 03/13/17 00:31 Date of admission: 03/13/17 07:41 Primary care physician: Bonita Nguyen CNP Consults: 03/13/17 08:07 Consult to Orthopedic Surgery [CONS] Routine Consulting Provider: Orthopedic and Sports Medicine Reason for Consult: Right hip fracture Time Notified: 08:07 Call Completed: Yes 03/13/17 23:58 Consult to Occupational Therapy [CONS] Routine Comment: Evaluate, develop and implement POC Reason for Consult: ADLs Consult to Physical Therapy [CONS] Routine Comment: Evaluate, develop and implement POC Reason for Consult: Hip Fx WBAT RLE Consult to Biology Specimen Technician [CONS] Routine Reason for SW Consult: DC 03/16/17 18:49 Consult to Cardiology [CONS] Routine Comment: Consulting Provider: Cardiology Aliya Reason for Consult: A-flutter with RVR, chest pain, tachycardia, per Sindi Mongludmilay Call Completed: Yes 03/20/17 13:16 Consult to Wound Care [CONS] Routine Reason for Consult: stage 2 pressure wound to coccyx Call Completed: Yes - Patient Status Disposition: Transfer SNF Condition: Good - Discharge Instructions Follow Up With: Bonita Nguyen CNP [Primary Care Provider] - Hospital course: Ms. Cortes is a 71 year old female - Time Spent with Patient Total time spent providing and/or coordinating discharge services: - Constitutional Vitals: Temp Pulse Resp BP Pulse Ox 98.2 F 73 16 106/64 96 03/25/17 10:35 03/25/17 10:35 03/25/17 10:35 03/25/17 10:35 03/25/17 10:35 General appearance: Present: cachectic, cooperative, A&O X 2, answers questions appropriately - VTE Documentation of Mechanical Device: Venous foot pump, device
== END 2017-03-25 16:00 | DRG 480 ==
LOC: 3NENU → SUATTDRO 07:41 → 3NENU 18:28
PROVIDERS: ADMIT Internal Medicine; ATTEND Hospitalist